=== PATIENT | male | born 1950 | race Caucasian/White ===

== ENCOUNTER 2017-10-26 10:44 | Outpatient (CLI) | payer MEDICARE, BC ==
[2017-10-26 19:01] LABS: BASOPHILS % (AUTO) 0.4 %; EOSINOPHILS # (AUTO) 0.2 10^3/uL (0.0-0.7); EOSINOPHILS % (AUTO) 4.3 %; HGB - HEMOGLOBIN 11.6 g/dL (14.0-18.0); LYMPHOCYTES # (AUTO) 0.6 10^3/uL (1.5-3.5); LYMPHOCYTES % (AUTO) 10.6 %; MEAN CORPUSCULAR HGB CONC 35.1 g/dL (32.0-36.0); MEAN CORPUSCULAR VOLUME 94.1 fL (80.0-94.0); MEAN PLATELET VOLUME 9.2 fL (7.4-11.4); MONOCYTES # (AUTO) 0.4 10^3/uL (0.0-1.0); MONOCYTES % (AUTO) 7.1 %; NEUTROPHILS # (AUTO) 4.4 10^3/uL (1.5-6.6); NEUTROPHILS % (AUTO) 77.6 %; PLT - PLATELET COUNT 164 10^3/uL (130-450); RED BLOOD COUNT 3.52 10^6/uL (4.70-6.10); WHITE BLOOD COUNT 5.6 x10^3/uL (4.8-10.8)
[2017-10-26 19:22] LABS: ALBUMIN/GLOBULIN RATIO 1.3 (1.0-2.2); ALKALINE PHOSPHATASE 45 IU/L (42-121); ALT ALANINE AMINOTRANSFERASE 25 IU/L (10-60); AST ASPARTATE AMINOTRANSFERASE 21 IU/L (10-42); BILIRUBIN,TOTAL 0.8 mg/dL (0.2-1.0); BUN - BLOOD UREA NITROGEN 34 mg/dL (6-20); CALCIUM 9.1 mg/dL (8.5-10.3); CARBON DIOXIDE - CO2 26 mmol/L (21-32); CHLORIDE 105 mmol/L (101-111); CHOL/HDL RATIO 4.2 (<5.0); CHOLESTEROL 177 mg/dL; CREATININE 1.3 mg/dL (0.6-1.2); GFR - MDRD 55 (>89); GLUCOSE 128 mg/dL (70-100); HDL CHOLESTEROL 42 mg/dL; LDL CHOLESTEROL,CALCULATED 115 mg/dL; LDL/HDL RATIO 2.7 (<3.6); SODIUM 136 mmol/L (135-145); VLDL CHOLESTEROL 20 mg/dL
== END 2017-10-26 10:45 | disposition home or self-care (01) ==
LOC: LAB.WCP 10:44
PROVIDERS: ATTEND Family Medicine
DX: E78.5 Hyperlipidemia, unspecified (principal); I10 Essential (primary) hypertension; Z12.5 Encounter for screening for malignant neoplasm of prostate
CPT/HCPCS: 36415; 80053; 80061; 84443; 85025; G0103; 83721; 84153

== ENCOUNTER 2017-12-11 08:48 | Day surgery (SDC) | payer MEDICARE, BC ==
[2017-12-11] MEDS ORDERED: LACTATED RINGERS 1,000 ML IV ONE (09:30)
[2017-12-11] MEDS ORDERED: fentaNYL 250 MCG/5 ML VIAL IVP ONE (10:15)
[2017-12-11] MEDS ORDERED: MIDAZOLAM 2 MG/2 ML VIAL IVP ONE (10:15)
[2017-12-11] MEDS ORDERED: ONDANSETRON 4 MG/2 ML VIAL IVP ONE (10:15)
[2017-12-11 11:27] VITALS: BP 142/79
== END 2017-12-11 08:49 | disposition home or self-care (01) ==
LOC: SDS 08:48
PROVIDERS: ATTEND Surgery
PROC: 0DBH8ZZ Excision of Cecum, Via Natural or Artificial Opening Endoscopic (ICD-10-PCS; 2017-12-11)
PROC: 0DBK8ZZ Excision of Ascending Colon, Via Natural or Artificial Opening Endoscopic (ICD-10-PCS; principal; 2017-12-11 10:00)
DX: Z12.11 Encounter for screening for malignant neoplasm of colon (principal); D12.2 Benign neoplasm of ascending colon; D12.0 Benign neoplasm of cecum; I10 Essential (primary) hypertension; D64.9 Anemia, unspecified; E66.9 Obesity, unspecified; Z68.34 Body mass index [BMI] 34.0-34.9, adult; Z80.0 Family history of malignant neoplasm of digestive organs; E11.9 Type 2 diabetes mellitus without complications
CPT/HCPCS: 45380; J3010; J7120; 88305

== ENCOUNTER 2018-12-13 08:00 | Outpatient (CLI) | payer MEDICARE, BC ==
[2018-12-13 18:40] LABS: BASOPHILS % (AUTO) 0.6 %; EOSINOPHILS # (AUTO) 0.2 10^3/uL (0.0-0.7); EOSINOPHILS % (AUTO) 3.7 %; HGB - HEMOGLOBIN 11.3 g/dL (14.0-18.0); LYMPHOCYTES # (AUTO) 0.8 10^3/uL (1.5-3.5); LYMPHOCYTES % (AUTO) 12.3 %; MEAN CORPUSCULAR HEMOGLOBIN 31.6 pg (27.0-31.0); MEAN CORPUSCULAR HGB CONC 33.7 g/dL (32.0-36.0); MEAN CORPUSCULAR VOLUME 93.8 fL (80.0-94.0); MONOCYTES # (AUTO) 0.5 10^3/uL (0.0-1.0); MONOCYTES % (AUTO) 7.9 %; NEUTROPHILS # (AUTO) 4.7 10^3/uL (1.5-6.6); NEUTROPHILS % (AUTO) 75.5 %; PLT - PLATELET COUNT 222 10^3/uL (130-450); RED BLOOD COUNT 3.57 10^6/uL (4.70-6.10); RED CELL DISTRIBUTION WIDTH 13.5 % (12.0-15.0); WHITE BLOOD COUNT 6.3 x10^3/uL (4.8-10.8)
[2018-12-13 19:01] LABS: ALBUMIN 3.6 g/dL (3.2-5.5); ALKALINE PHOSPHATASE 61 IU/L (42-121); ALT ALANINE AMINOTRANSFERASE 15 IU/L (10-60); AST ASPARTATE AMINOTRANSFERASE 15 IU/L (10-42); BILIRUBIN,TOTAL 0.8 mg/dL (0.2-1.0); BUN - BLOOD UREA NITROGEN 29 mg/dL (6-20); CALCIUM 9.1 mg/dL (8.5-10.3); CARBON DIOXIDE - CO2 24 mmol/L (21-32); CHLORIDE 105 mmol/L (101-111); CHOL/HDL RATIO 3.5 (<5.0); CHOLESTEROL 154 mg/dL; CREATININE 1.4 mg/dL (0.6-1.2); GFR - MDRD 50 (>89); GLUCOSE 133 mg/dL (70-100); HDL CHOLESTEROL 44 mg/dL; LDL CHOLESTEROL,CALCULATED 83 mg/dL; LDL/HDL RATIO 1.9 (<3.6); SODIUM 137 mmol/L (135-145); TOTAL PROTEIN 7.1 g/dL (6.7-8.2); VLDL CHOLESTEROL 27 mg/dL
== END 2018-12-13 23:59 | disposition home or self-care (01) ==
LOC: LAB.WCP 08:00
PROVIDERS: ATTEND Family Medicine
DX: I10 Essential (primary) hypertension (principal); E78.5 Hyperlipidemia, unspecified; E66.9 Obesity, unspecified; D64.9 Anemia, unspecified
CPT/HCPCS: 36415; 80053; 80061; 83721; 84443; 85025

== ENCOUNTER 2018-12-20 08:00 | Outpatient (CLI) | payer MEDICARE, BC ==
[2018-12-20 18:45] LABS: MEAN CORPUSCULAR HEMOGLOBIN 30.9 pg (27.0-31.0); MEAN CORPUSCULAR HGB CONC 33.4 g/dL (32.0-36.0); MEAN CORPUSCULAR VOLUME 92.5 fL (80.0-94.0); MEAN PLATELET VOLUME 8.9 fL (7.4-11.4); RED BLOOD COUNT 3.57 10^6/uL (4.70-6.10); RED CELL DISTRIBUTION WIDTH 13.6 % (12.0-15.0); WHITE BLOOD COUNT 7.5 x10^3/uL (4.8-10.8)
[2018-12-20 19:02] LABS: CALCIUM 8.9 mg/dL (8.5-10.3); CREATININE 2.3 mg/dL (0.6-1.2); URIC ACID 11.3 mg/dL (2.6-7.2)
== END 2018-12-20 23:59 | disposition home or self-care (01) ==
LOC: LAB.WCP 08:00
PROVIDERS: ATTEND Family Medicine
DX: M79.641 Pain in right hand (principal)
CPT/HCPCS: 36415; 80048; 84550; 85027; 85651

== ENCOUNTER 2018-12-20 13:27 | Outpatient (CLI) | payer MEDICARE, BC ==
--- NOTE | 2018-12-20 13:55 | XRAY Report ---
Reason: HAND PAIN,RIGHT Procedure Date: 12/20/2018 Accession Number: [id number] / [id number] Procedure: WCP - Hand 3 View RT CPT Code: FULL RESULT: EXAM: RIGHT HAND RADIOGRAPHY EXAM DATE: 12/20/2018 01:38 PM. CLINICAL HISTORY: HAND PAIN AND SWELLING, RIGHT. COMPARISON: None. TECHNIQUE: 3 views. FINDINGS: Bones: The middle and distal phalanges of digits 2 through 5 are not optimally evaluated because the patient cannot extend his fingers. No obvious osseous abnormality in the hand or wrist. Joints: Mild chondrocalcinosis in multiple wrist joints. Soft Tissues: Marked dorsal hand soft tissue swelling. Differential diagnosis includes trauma or cellulitis. IMPRESSION: 1. No evidence of fracture. 2. Marked dorsal hand soft tissue swelling as described above. RADIA
== END 2018-12-20 13:28 | disposition home or self-care (01) ==
LOC: DI.WCP 13:27
PROVIDERS: ATTEND Family Medicine
DX: M79.641 Pain in right hand (principal); R22.31 Localized swelling, mass and lump, right upper limb

== ENCOUNTER 2018-12-26 12:43 | Outpatient (CLI) | payer MEDICARE, BC ==
[2018-12-26 18:53] LABS: BASOPHILS % (AUTO) 0.3 %; EOSINOPHILS % (AUTO) 0.1 %; HGB - HEMOGLOBIN 11.2 g/dL (14.0-18.0); LYMPHOCYTES # (AUTO) 0.3 10^3/uL (1.5-3.5); LYMPHOCYTES % (AUTO) 3.4 %; MEAN CORPUSCULAR HEMOGLOBIN 31.8 pg (27.0-31.0); MEAN PLATELET VOLUME 8.2 fL (7.4-11.4); MONOCYTES # (AUTO) 0.3 10^3/uL (0.0-1.0); MONOCYTES % (AUTO) 3.3 %; NEUTROPHILS # (AUTO) 9.2 10^3/uL (1.5-6.6); NEUTROPHILS % (AUTO) 92.9 %; PLT - PLATELET COUNT 320 10^3/uL (130-450); RED BLOOD COUNT 3.53 10^6/uL (4.70-6.10); RED CELL DISTRIBUTION WIDTH 13.3 % (12.0-15.0)
[2018-12-26 19:11] LABS: CREATININE 2.2 mg/dL (0.6-1.2)
[2018-12-26 19:28] LABS: CALCIUM 8.9 mg/dL (8.5-10.3)
== END 2018-12-26 12:44 | disposition home or self-care (01) ==
LOC: LAB.WCP 12:43
PROVIDERS: ATTEND Family Medicine
DX: M10.9 Gout, unspecified (principal); M79.641 Pain in right hand; N18.3 Chronic kidney disease, stage 3 (moderate); I12.9 Hypertensive chronic kidney disease with stage 1 through stage 4 chronic kidney disease, or unspecified chronic kidney disease
CPT/HCPCS: 36415; 80048; 85025

== ENCOUNTER 2019-01-02 19:52 | Observation (INO) | payer MEDICARE, BC ==
[2019-01-02] MEDS ORDERED: SODIUM CHLORIDE 0.9% 1,000 ML IV ONE (20:21)
--- NOTE | 2019-01-02 20:24 | ED Physician Documentation ---
PD HPI NVD - Stated complaint Stated Complaint: NAUSEA/DIARRHEA - Chief complaint Chief Complaint: General - History obtained from History obtained from: Patient - History of Present Illness Timing - onset: How many days ago (3) Timing - duration: Days Timing - details: Gradual onset, Waxing and waning Pain level max: 0 Pain level now: 0 Associated symptoms: Dizzy. No: Fever, Abdominal pain, Chest pain, Hematemesis, Melena, Hematochezia Improved by: Laying still Worsened by: Other (dizzy when standing) Similar symptoms before: Has not had sx before Recently seen: Not recently seen - Additonal information Additional information: c/o 3 days of nausea but no significant vomiting, diarrhea (chief complaint is diarrhea). denies any pain. He has mild lightheadedness and becomes dizzy when standing and ambulating. Review of Systems Constitutional: denies: Fever, Chills, Sweats Eyes: reports: Reviewed and negative Cardiac: reports: Reviewed and negative Respiratory: reports: Reviewed and negative GI: reports: Nausea, Diarrhea. denies: Abdominal Pain, Vomiting : denies: Dysuria, Frequency Skin: denies: Rash Musculoskeletal: reports: Reviewed and negative Neurologic: reports: Generalized weakness. denies: Focal weakness, Numbness, Headache PD PAST MEDICAL HISTORY - Past Medical History Cardiovascular: Hypertension, High cholesterol Respiratory: None Endocrine/Autoimmune: Type 2 diabetes GI: None : None HEENT: None Psych: None Musculoskeletal: None Derm: None - Past Surgical History Past Surgical History: No General: Colonoscopy HEENT: Other - Present Medications Home Medications: Ambulatory Orders Medication Instructions Recorded Confirmed Aspirin [Aspir-Low] 81 mg ORAL DAILY 10/19/15 01/02/19 Carvedilol 25 mg ORAL BID 10/19/15 01/02/19 Lisinopril 20 mg ORAL BID 10/19/15 01/02/19 Simvastatin 10 mg ORAL DAILY 10/19/15 01/02/19 Allopurinol 100 mg PO DAILY 01/02/19 01/02/19 Colchicine 0.6 mg PO DAILY 01/02/19 01/02/19 - Allergies Allergies/Adverse Reactions: Allergies Allergy/AdvReac Type Severity Reaction Status Date / Time No Known Drug Allergies Allergy Verified 01/02/19 20:12 - Social History Does the pt smoke?: No Smoking Status: Never smoker Does the pt drink ETOH?: Yes Does the pt have substance abuse?: No - Immunizations Immunizations are current?: Yes PD ED PE NORMAL - Vitals Vital signs reviewed: Yes - General General: Alert and oriented X 3, No acute distress, Well developed/nourished - HEENT HEENT: PERRL, EOMI, Moist mucous membranes, Pharynx benign - Neck Neck: Supple, no meningeal sign - Cardiac Cardiac: RRR, No murmur - Respiratory Respiratory: No respiratory distress, Clear bilaterally - Abdomen Abdomen: Normal bowel sounds, Soft, Non tender, Non distended, No organomegaly - Back Back: No CVA TTP - Derm Derm: Normal color, Warm and dry - Extremities Extremities: No edema - Neuro Neuro: Alert and oriented X 3, weight recorder 2-12 intact, No motor deficit, No sensory deficit, Normal speech PD ED PE EXPANDED - Cardiac Cardiac: Other (occasional extrabeats with compensatory pauses) - Rectal Rectal: Heme Occult Pos - QC +, Selling Manager present (JESUS Quinteros) Results - Vitals Vitals: Vital Signs - 24 hr 01/02/19 01/02/19 01/02/19 20:07 20:22 20:39 Temperature 36.7 C Heart Rate 93 104 H 95 Respiratory 18 21 19 Rate Blood Pressure 71/56 L 118/99 H 84/58 L O2 Saturation 100 100 97 01/02/19 01/02/19 21:08 21:30 Temperature Heart Rate 98 101 H Respiratory 18 23 Rate Blood Pressure 118/65 100/66 O2 Saturation 97 100 Oxygen O2 Source Room air - EKG (time done) No standard instances Rate: Rate (enter#) (95) Rhythm: NSR Slinger: Normal Intervals: Normal SC QRS: Normal Ischemia: Normal ST segments, Non specific changes (T flat/inverted V4-V6, I, aVL, and inferior leads) - Labs Labs: Laboratory Tests 01/02/19 01/02/19 01/02/19 20:29 20:29 20:30 WBC 12.7 H RBC 3.86 L Hgb 12.0 L Hct 35.0 L MCV 90.7 MCH 31.0 MCHC 34.2 RDW 13.3 Plt Count 193 MPV 8.0 Neut # (Auto) 11.8 H Lymph # (Auto) 0.2 L Potter # (Auto) 0.2 Eos # (Auto) 0.3 Baso # (Auto) 0.1 Absolute Nucleated RBC 0.00 Nucleated RBC % 0.0 Sodium 132 L Potassium 5.3 H Chloride 106 Carbon Dioxide 14 L Anion Gap 12.0 BUN 75 H Creatinine 3.2 H Estimated GFR (MDRD) 19 L Glucose 141 H Lactic Acid Calcium 8.6 Total Bilirubin 0.7 AST 20 ALT 26 Alkaline Phosphatase 51 Troponin I < 0.04 Total Protein 6.5 L Albumin 3.2 Globulin 3.3 Albumin/Globulin Ratio 1.0 Lipase 28 TSH 01/02/19 01/02/19 20:30 20:30 WBC RBC Hgb Hct MCV MCH MCHC RDW Plt Count MPV Neut # (Auto) Lymph # (Auto) Potter # (Auto) Eos # (Auto) Baso # (Auto) Absolute Nucleated RBC Nucleated RBC % Sodium Potassium Chloride Carbon Dioxide Anion Gap BUN Creatinine Estimated GFR (MDRD) Glucose Lactic Acid 1.6 Calcium Total Bilirubin AST ALT Alkaline Phosphatase Troponin I Total Protein Albumin Globulin Albumin/Globulin Ratio Lipase TSH 0.94 - Rads (name of study) chest xray Radiology: Prelim report reviewed, See rad report PD MEDICAL DECISION MAKING - ED course Complexity details: reviewed results, re-evaluated patient, considered differential, d/w patient Departure - Departure Disposition: ED Place in Observation Clinical Impression: Dehydration Hypotension Qualifiers: Hypotension type: unspecified hypotension type Qualified Code(s): I95.9 - Hypotension, unspecified Condition: Stable Discharge Date/Time: 01/02/19 22:50
[2019-01-02 20:34] LABS: BASOPHILS # (AUTO) 0.1 10^3/uL (0.0-0.1); BASOPHILS % (AUTO) 0.5 %; EOSINOPHILS # (AUTO) 0.3 10^3/uL (0.0-0.7); EOSINOPHILS % (AUTO) 2.6 %; LYMPHOCYTES # (AUTO) 0.2 10^3/uL (1.5-3.5); LYMPHOCYTES % (AUTO) 1.8 %; MEAN CORPUSCULAR HGB CONC 34.2 g/dL (32.0-36.0); MEAN CORPUSCULAR VOLUME 90.7 fL (80.0-94.0); MONOCYTES # (AUTO) 0.2 10^3/uL (0.0-1.0); NEUTROPHILS # (AUTO) 11.8 10^3/uL (1.5-6.6); NEUTROPHILS % (AUTO) 93.1 %; PLT - PLATELET COUNT 193 10^3/uL (130-450); RED BLOOD COUNT 3.86 10^6/uL (4.70-6.10); RED CELL DISTRIBUTION WIDTH 13.3 % (12.0-15.0); WHITE BLOOD COUNT 12.7 x10^3/uL (4.8-10.8)
[2019-01-02 20:46] LABS: ALBUMIN 3.2 g/dL (3.2-5.5); BILIRUBIN,TOTAL 0.7 mg/dL (0.2-1.0); CALCIUM 8.6 mg/dL (8.5-10.3); CREATININE 3.2 mg/dL (0.6-1.2); TOTAL PROTEIN 6.5 g/dL (6.7-8.2)
--- NOTE | 2019-01-02 21:15 | XRAY Report ---
Reason: hypotension Procedure Date: 01/02/2019 Accession Number: [id number] / [id number] Procedure: XR - Chest 2 View X-Ray CPT Code: 58352 FULL RESULT: EXAM: CHEST RADIOGRAPHY EXAM DATE: 01/02/2019 09:05 PM. CLINICAL HISTORY: Nausea and generalized weakness for 4 days COMPARISON: None. TECHNIQUE: 2 views. FINDINGS: Lungs/Pleura: No focal opacities evident. No pleural effusion. No pneumothorax. Normal volumes. Mediastinum: The heart size is normal. There is mild aortic arch atherosclerotic calcification. Other: There are old fractures of the posterior left sixth, seventh, and eighth ribs. There is anterior disk osteophyte spurring of the thoracic spine. IMPRESSION: Negative for any acute cardiopulmonary abnormality. RADIA
[2019-01-02] MEDS ORDERED: SODIUM CHLORIDE 0.9% 1,000 ML IV STA (21:25)
[2019-01-02] MEDS ORDERED: ONDANSETRON ODT 4 MG TABLET TL PRN (21:33)
[2019-01-02] MEDS ORDERED: ACETAMINOPHEN 325 MG TABLET PO PRN (21:33)
[2019-01-02] MEDS ORDERED: ONDANSETRON 4 MG/2 ML VIAL IVP PRN (21:33)
[2019-01-02] MEDS ORDERED: oxyCODONE 5 MG TABLET PO PRN (21:33)
[2019-01-02 21:55] LABS: BILIRUBIN,URINE NEGATIVE (NEGATIVE); GLUCOSE, URINE (UA) NEGATIVE (NEGATIVE); KETONES,URINE (UA) NEGATIVE (NEGATIVE); LEUKOCYTE ESTERASE, URINE NEGATIVE (NEGATIVE); NITRITE,URINE NEGATIVE (NEGATIVE); OCCULT BLOOD,URINE NEGATIVE (NEGATIVE); PH,URINE 5.5 PH (5.0-7.5); PROTEIN,URINE NEGATIVE (NEGATIVE); UROBILINOGEN,URINE 0.2 (NORMAL) E.U./dL (NORMAL)
[2019-01-02 22:01] LABS: CLARITY,URINE CLEAR (CLEAR)
[2019-01-02] MEDS: PANTOPRAZOLE 40 MG VIAL IVP SCH (23:15)
[2019-01-02] MEDS: SODIUM CHLORIDE 0.9% 1,000 ML IV SCH (23:15)
[2019-01-02] MEDS: SODIUM CHLORIDE FLUSH 0.9% 10 ML SYRINGE IVP PRN (23:15)
[2019-01-02] MEDS: SODIUM CHLORIDE FLUSH 0.9% 10 ML SYRINGE IVP SCH (23:16)
--- NOTE | 2019-01-03 03:40 | HISTORY & PHYSICAL EXAMINATION ---
DATE OF SERVICE: 01/02/2019 Physician: Smiley Uribe MD PRIMARY CARE PROVIDER: Roberto Baez MD ADMITTING PROVIDER: Smiley Uribe MD CHIEF COMPLAINT: Diarrhea for 2 days with nausea and vomiting. HISTORY OF PRESENT ILLNESS: He is a 68-year-old male with cognitive delay deficits as read in his PCP notes. He lives in his own home and still drives, pays his own bills, but [place] His father used to live with him, but his father 2 years ago of colon cancer. The patient is seen intermittently in Dr. Baez's office. He had not been seen in about a year and he presented to the office on December 13, with a complaint of right hand swelling and pain since about December 13. The entire right hand was diffusely swollen, with painful fourth and third joints. The sister describes it as a baseball glove. He was seen by Dr. Baez on December 20. Dr. Baez examined him and felt that it was either infection or gout. Plain film was done and there was no destructive joint process going on. Labs were done. Of note, December 13 creatinine was 1[address] With Dr. Baez's visit, the creatinine had already risen to 2.3. He was started on cephalexin and Colcrys for possible gout. He was then referred to Dr. Colón, who saw him. That was on December 24. The hand was still swollen, painful to completely flex the fingers, wrist was slightly tender, and again pain at the third and fourth joints of the right hand. Instead of indomethacin, because of the creatinine, Medrol Dosepak was used. Keflex was changed to Bactrim. This patient is already on Colcrys and lisinopril and hydrochlorothiazide. He was then seen in followup by Dr. Baez on December 27, and allopurinol was added to start this week. He took allopurinol for a few days only. Diarrhea started 2 days ago. It is liquid, foul smelling. No blood. He has no appetite. He then started having nausea and vomiting. He said that the diarrhea did not start with the Colcrys on December 20, but only started this last 2 days, approximately December 31 and January 01. He denies fever, chills. He has had 2 colonoscopies. One was in 2007. Because of his dad's history of colon cancer, he had another one in December 2017, where 2 polyps were negative in their pathology. He has baseline chronic kidney disease stage 3. He was seen in the emergency room and evaluated by Dr. Reese. Presenting blood pressure was 71/56. He received 2 liters of fluid in the ER and blood pressure went up to 118/99. Upon transfer from the ER to med/surg, his blood pressure was 100/66. Pulse was initially 93 and peaked at 104. He is currently 101. He is a pleasant, morbidly obese male. The right hand is tremendously improved from the descriptions of Dr. Colón and Dr. Baez's notes. The patient is very satisfied with how much more hand movement he has and the swelling is almost completely gone. However, his sodium is 132, potassium 5.3, BUN 75 and creatinine 3.2. Random glucose 141. Troponin is less than 0.04 and lactic acid is 1.6. The patient is now brought in for dehydration, with acute rise in BUN and creatinine. PAST MEDICAL HISTORY 1. Type 2 diabetes mellitus, diet controlled. No complications. 2. Hypertension. 3. Morbid obesity. 4. Chronic proteinuria. 5. Chronic nonalcoholic liver disease. 6. Chronic anemia with a hemoglobin of 11.6. 7. History of colon polyps with negative pathology. Last colonoscopy December 2017. He will be due in December 2022. ALLERGIES: NO KNOWN DRUG ALLERGIES. MEDICATIONS 1. Aspirin 81 mg daily. 2. Carvedilol 25 mg p.o. b.i.d. 3. Hydrochlorothiazide 50 mg daily. 4. Lisinopril 20 mg daily. 5. Simvastatin 10 mg daily. 6. Medrol Dosepak was completed 2 days ago. 7. Colcrys 0.6 mg p.o. b.i.d. was decreased to 0.6 mg daily on December 27. He says he has not had any for 2 days. 8. Allopurinol 100 mg daily was given this week. SOCIAL HISTORY: Born and raised on the [place]. Never . He has no children. Lives in his own home. Again, was living with his father when his father 2 years ago. Sister who is with him states that he is safe to be independent. He has never smoked. He drinks 1-2 beers about every 2 weeks. No history of recreational substance abuse. FAMILY HISTORY 1. Mom had depression, arthritis, anxiety, alcohol abuse, in her 70s. Dad in his 80s in 2017 with chronic kidney disease, colon cancer, osteoarthritis, anemia, and skin cancer in his history. The family is understandably very concerned that this gentleman has a rise in his creatinine because they feel that dad of kidney failure. 2. Several siblings. Only positive for breast cancer in one of his sisters. 3. No children. PREVIOUS LEVEL OF FUNCTION: The patient lives independently in his own apartment. He pays his own bills. He drives a car. Usually, he is quite independent, but with his hand hurting he has not driven his car for over a month. His sister has been taking him from place to place. REVIEW OF SYSTEMS CONSTITUTIONAL: Denies fevers, chills, sweats, unexpected weight changes. ENT: He has developing problems with reading and may need reading glasses, but denies glaucoma or cataracts. No problems with swallowing, dentition. No facial dysesthesias. No problems with hearing. PULMONARY: Denies coughing, wheezing, congestion, shortness of breath, chest congestion, or URI symptoms. CARDIAC: Denies valvular heart disease, arrhythmia, orthopnea, leg edema. He has no chest pain. No change in his overall physical activity or endurance. His mobility is limited right now because of hand pain that has gradually gotten much better. GASTROINTESTINAL: As above. GENITOURINARY: Occasional nocturia, slight decreased stream. No hematuria, no flank pain, no dysuria or urgency, no incontinence. JOINTS: The right hand has been painful over the last month. He has some stiffness in his hands in a baseline perspective. Occasionally, low back stiffness, but no effusions, no migratory polyarthralgia. The right hand is the only thing that bothered him. Many years ago, it was his foot that bothered him with gout. SKIN: Sister is concerned, but she states she feels that his right forearm is whiter than his left forearm, but the patient feels the coloration is the same. No new rashes or lesions, other than the redness and swelling around his hand and wrist this month. PSYCHIATRIC: Denies depression, anxiety, hallucinations. ENDOCRINE: Denies polyphagia or polydipsia. No heat or cold intolerance. CENTRAL NERVOUS SYSTEM: Mild developmental delay. No seizure problems, memory problems that are new. No focal deficits. No tremors. No ataxia or falls. PHYSICAL EXAMINATION GENERAL: He is a pleasant, white male accompanied by his sister at the bedside in the emergency room. Mildly overweight. VITAL SIGNS: Temperature is 36.7, pulse is 101, blood pressure 100/66, respirations 23 and 100% on room air. ENT: He has male pattern baldness. Pupils are reactive. Sclerae are nonicteric. Normal facial symmetry. Oral mucosa is quite dry. Lips are not cracked. Normal speech pattern. NECK: No goiter, bruits or JVD. LUNGS: Clear to auscultation and percussion without crackles, rhonchi or wheezing. He is breathing without any increased difficulty when I ask him to get up and move for me or to speak. He is quite comfortable from a respiratory perspective. HEART: PMI is normally placed with a regular rate and rhythm. No murmurs, rubs or gallops. ABDOMEN: Slightly protuberant with his weight, but nontender. Normal bowel sounds. No rebound or guarding. No masses palpable. EXTREMITIES: Warm without clubbing, cyanosis or edema. There is a subtle edema residual in the right hand in comparison to the left hand. The flexor tendons and extensor tendons of his fingers and hand on the left hand are quite visible. On the right hand, there are some soft tissue changes that obscure that, but there is no redness, heat. Full flexion at the second, third, and fourth fingers is not complete in comparison to the left hand, but able to do so. He says that his hand is overall much improved from the "baseball glove" that it was at the beginning of December. My exam concurs with this and, really, without knowing his history, you would think the right hand was normal. As per the sister's concern about the forearm discoloration, forearm color is the same color as the left forearm. He has good dorsalis pedis and posterior tibial pulses. NEUROLOGIC: He is alert and oriented to person, place and time. Follows 2-step commands. Cheerful affect. Grossly normal cranial nerves II-XII. No tremors. LABORATORY DATA: CMP reviewed in history. CBC reviewed in history. Urinalysis is negative for protein, glucose, ketones, nitrites, bilirubin and urobilinogen. Leukocyte esterase negative. No cells seen at all. ASSESSMENT/PLAN 1. Acute dehydration secondary to medication use. I had his sister take home his allopurinol, Colcrys. I am going to hold off on his lisinopril and hydrochlorothiazide. I expect that the dehydration is drug-induced. We will evaluate problem #2. Plan: a. Observation status for hydration. b. Attestation that the patient will be discharged within 96 hours. c. Hydration with 0.9 normal saline. 2. Acute on chronic kidney disease stage 3. Check renal ultrasound. This patient had a creatinine of 1.4 on December 13, 2.3 on December 20, 2.2 on December 26, and today 3.2 with hyperkalemia. Initially, I suspected possible interstitial nephritis from his medication use, but his urinalysis has no cellular constituent whatsoever. He may have just severe dehydration and intra-volume depletion that may have started even before his use of medication as seen on the Creatinine that was done before he saw Dr. Baez. Plan: IV fluids for hydration and repeat BMP in the morning. 3. Nausea and vomiting. While I do think that the diarrhea could be induced from the allopurinol and Colcrys, the nausea and vomiting are most likely induced from the BUN and creatinine. Hopefully, with a reduction in his BUN and creatinine, that will resolve. Give clear liquids. Compazine p.r.n., Zofran p.r.n. 4. Diarrhea. Again, most likely induced by the Colcrys. He has not had Colcrys for 2 days, but he is on antibiotics. We will check stool culture, C. difficile for completeness sake. 5. Hypertension. Currently not a problem. In fact, he is hypotensive, most likely from hypovolemia. I have had a sister take home his hydrochlorothiazide and lisinopril. He does not need to take it here. We will continue to monitor blood pressure and give medicines as needed. 6. Deep venous thrombosis prophylaxis will be CHAPO diallo. 7. FULL CODE status. TD: 01/02/2019 22:35 ESPERANZA
[2019-01-03] MEDS: PANTOPRAZOLE 40 MG VIAL IVP SCH (06:28)
[2019-01-03] MEDS: SODIUM CHLORIDE FLUSH 0.9% 10 ML SYRINGE IVP PRN (06:29)
[2019-01-03 07:28] LABS: BASOPHILS % (AUTO) 0.1 %; EOSINOPHILS # (AUTO) 0.3 10^3/uL (0.0-0.7); EOSINOPHILS % (AUTO) 4.3 %; HGB - HEMOGLOBIN 10.3 g/dL (14.0-18.0); LYMPHOCYTES # (AUTO) 0.3 10^3/uL (1.5-3.5); LYMPHOCYTES % (AUTO) 4.4 %; MEAN CORPUSCULAR HEMOGLOBIN 31.4 pg (27.0-31.0); MEAN CORPUSCULAR HGB CONC 34.5 g/dL (32.0-36.0); MEAN PLATELET VOLUME 8.3 fL (7.4-11.4); MONOCYTES # (AUTO) 0.2 10^3/uL (0.0-1.0); MONOCYTES % (AUTO) 2.4 %; NEUTROPHILS # (AUTO) 6.9 10^3/uL (1.5-6.6); NEUTROPHILS % (AUTO) 88.8 %; PLT - PLATELET COUNT 140 10^3/uL (130-450); RED BLOOD COUNT 3.29 10^6/uL (4.70-6.10); RED CELL DISTRIBUTION WIDTH 13.5 % (12.0-15.0); WHITE BLOOD COUNT 7.7 x10^3/uL (4.8-10.8)
[2019-01-03 07:35] LABS: CALCIUM 7.7 mg/dL (8.5-10.3); CREATININE 2.6 mg/dL (0.6-1.2)
[2019-01-03] MEDS: SODIUM CHLORIDE 0.9% 1,000 ML IV SCH (08:54)
[2019-01-03] MEDS: SODIUM BICARBONATE 650 MG TABLET PO SCH ×2 (08:54→15:42)
[2019-01-03] MEDS: SODIUM CHLORIDE FLUSH 0.9% 10 ML SYRINGE IVP SCH (08:55)
[2019-01-03] MEDS ORDERED: POLYETHYLENE GLYCOL 3350 17 GM PACKET PO SCH (09:00)
[2019-01-03 09:28] LABS: CREATININE,URINE 63.6 mg/dL; PROTEIN/CREATININE RATIO,URINE 0.4 (<=0.2)
--- NOTE | 2019-01-03 10:42 | Discharge Plan ---
Discharge Plan Disposition: 01 Home, Self Care Condition: Good Prescriptions: Lactobacillus Rhamnosus GG [Culturelle] 0 cap PO DAILY #15 capsule Sodium Bicarbonate 650 mg PO TID 10 Days #30 tablet Diet: Regular Activity Restrictions: No Restrictions Shower Restrictions: No Driving Restrictions: No Instruction Topics: Kidney Disease Chronic Dc, ED Insufficiency Renal, ED Diet Renal Additional Instructions or Follow Up instructions: You were admitted for an acute kidney injury which may have been associated with the use of Bactrim as well as other nephrotoxic agents. He will be instructed to hold off on your dose of lisinopril as well as Coreg as these may potentiate further kidney damage on your existing chronic kidney disease stage III. You were also noted to have electrolyte disturbances which are going to be corrected with the prescription that will be given to you sodium bicarbonate 650 mg to be taken 3 times daily for a total of 10 days. We will be instructed to provide necessary fluid intake so your blood pressures can go back to baseline. You will follow-up with your primary care provider in about 1 week's time to repeat a blood draw to check for your creatinine for which this would be a function of your kidney damage. You are instructed to take all medications as prescribed and keep all appointments. No Smoking: If you smoke, Please STOP! Call for help. Follow-up with: Roberto Baez MD [Primary Care Provider] - 1 Week (We will repeat a renal panel in 1 week's time)
--- NOTE | 2019-01-03 10:48 | DISCHARGE SUMMARY ---
"Discharge Summary Admit Date: 01/02/19 Discharge Date: 01/03/19 Discharging Provider: Dr. Wayne Primary Care Provider: Roberto Baez Code Status: Attempt Resuscitation Condition at Discharge: Good Discharge Disposition: 01 Home, Self Care - DIAGNOSES Admission Diagnoses: 1. Acute dehydration secondary to medication use 2. Acute on chronic kidney disease stage III 3. Nausea with associated vomiting 4. Diarrhea 5. Hypertension Discharge Diagnoses with Status of Each Condition: 1. Acute dehydration secondary to medication use, Stable and improved 2. Possible interstitial nephritis secondary to Bactrim use with Acute on chronic kidney disease stage III, Stable and improved 3. Nausea with associated vomiting, Resolved 4. Non-infectious Diarrhea, Stable and improved 5. Hypertension, Stable 6. History of gout, stable - HPI History of Present Illness: This is a 68-year-old male with cognitive delay deficits per PCP notes who presents to his PCPs office and was seen for edematous hand with painful fourth and third joints to his entire right hand. He was seen by Dr. Baez on December 20 for which he felt that he had an infection or gout. Patient was given steroi ds as well as started on Keflex and Colcrys for possible gout. He was then referred to orthopedic service and still showed some limitations to flexion of fingers. Patient was continued on a Medrol Dosepak along with the changing of Keflex to Bactrim. Patient in addition was on lisinopril and hydr ochlorothiazide as well as Coreg. Patient had diarrhea subsequently after taking Bactrim as well as allopurinol. Patient was tested for C. difficile here and was negative. Patient's creatinine had essentially gone up from baseline of 1.4-1.8 to a 3.2. Patient has underlying chronic kidney disease stage III. Troponin was less than 0.04 with a lactic acid of 1.6. Patient was brought in for dehydration with acute rise in BUN and creatinine deemed to be possibly interstitial nephritis as a result of administration of Bactrim. - CONSULTS | PROCEDURES Procedures: Retroperitoneal ultrasound Was unremarkable on 01/03/2019 - HOSPITAL COURSE Hospital Course: Patient was admitted for acute dehydration with prerenal azotemia with electrolyte disturbance and metabolic acidosis as it pertained to his possible interstitial nephritis as it is associated with Bactrim double strength. Patient was medically managed with a creatinine trending from 3.2-2.6 upon discharge. Patient responded well to medical management IV fluids with initial reactive leukocytosis of 12.7 to a normal WBC upon discharge. Patient had blood pressure of 108/66 with variable tachycardia and no arrhythmias seen throughout hospitalization. Prior serum uric acid dated 12/20 was 11.3, patient had previously been on allopurinol. Patient's diarrhea improved significantly and patient will be prescribed lactobacillus as an outpatient and stopping all offending agents that may have precipitated an interstitial nephritis. However I suspect Bactrim double strength medication to be the culprit. Patient will be given the prescriptions for sodium bicarbonate to replenish sodium and stabilize metabolic acidosis. Urinalysis did not show white cast or renal cell casts or any sediments or crystals. No infections were seen. Patient's right hand was not erythematous or edematous. Patient on chest x-ray had old fractures to the posterior left sixth seventh and eighth ribs. C. difficile was negative. Retroperitoneal ultrasound Was unremarkable on 01/03/2019. Patient will be given instructions on repeating renal panel in about 1 week's time at PCPs office Dr. Roberto Baez. - ALLERGIES Allergies/Adverse Reactions: Allergies Allergy/AdvReac Type Severity Reaction Status Date / Time No Known Drug Allergies Allergy Verified 01/02/19 20:12 - MEDICATIONS Home Medications: Ambulatory Orders Medication Instructions Recorded Confirmed Aspirin [Aspir-Low] 81 mg ORAL DAILY 10/19/15 01/02/19 Simvastatin 10 mg ORAL DAILY 10/19/15 01/02/19 Allopurinol 100 mg PO DAILY 01/02/19 01/02/19 HYDROcod/ACETAM 5/325 [[place] 5/325] 1 each PO QID PRN 01/03/19 01/03/19 Lactobacillus Rhamnosus GG 0 cap PO DAILY #15 capsule 01/03/19 [Culturelle] Sodium Bicarbonate 650 mg PO TID 10 Days #30 tablet 01/03/19 - PHYSICAL EXAM AT DISCHARGE General Appearance: positive: No acute distress, Alert, Mild distress, Other (Developmental delay) Eyes Bilateral: positive: Normal inspection, PERRL, EOMI ENT: positive: ENT inspection nml, Pharynx nml, No signs of dehydration Neck: positive: Nml inspection, Thyroid nml, No JVD, Trachea midline Cardiovascular: positive: Regular rate & rhythm, No murmur, No gallop Peripheral Pulses: positive: 2+ Abdomen: positive: Non-tender, No organomegaly, Nml bowel sounds, No distention. negative: Tenderness Skin: positive: Color nml, No rash Extremities: positive: Non-tender, Full ROM, Nml appearance Neurologic/Psychiatric: positive: Oriented x3, CN's nml (2-12) - LABS Result Diagrams: 01/03/19 07:18 01/03/19 07:18 - DIAGNOSTIC IMAGING Diagnostic Imaging Results: Final report reviewed - SEPSIS Current Stage of Sepsis: Ruled out - FOLLOW UP Follow Up: Follow-up with PCP Dr. Roberto Baez within 1 or 2 weeks and repeat renal panel - TIME SPENT Time Spent in Discharge (Minutes): 35"
[2019-01-03] MEDS ORDERED: HYDROcod/ACETAM 5/325 MG TABLET PO PRN (15:29)
[2019-01-03 15:30] VITALS: BP 120/66
--- NOTE | 2019-01-03 15:41 | Ultrasound Report ---
Reason: eval for hydronephrosis/stones Procedure Date: 01/03/2019 Accession Number: [id number] / [id number] Procedure: US - Retroperitoneal CPT Code: FULL RESULT: EXAM: RENAL ULTRASOUND EXAM DATE: 01/03/2019 02:32 PM. CLINICAL HISTORY: Renal insufficiency COMPARISON: ABDOMEN/PELVIS W/ 10/19/2015 5:58 PM. TECHNIQUE: Real-time scanning was performed with static images obtained. FINDINGS: Right Kidney: 9.5 x 5.3 x 4.8 cm. Mildly increased cortical echogenicity with no stones, contour-deforming masses, or hydronephrosis. Left Kidney: 9.3 x 7.0 x 5.8 cm. Mildly increased cortical echogenicity with no stones, contour-deforming masses, or hydronephrosis. There is an exophytic renal cyst. Bladder: Bilateral jets seen. The prevoid bladder volume was 335 cc. The postvoid bladder volume was 54 cc. Other: None. IMPRESSION: 1. The kidneys demonstrate no shadowing stones or hydronephrosis. 2. There is a small post void residual bladder volume. RADIA
== END 2019-01-03 16:21 | disposition home or self-care (01) ==
LOC: ED 19:52 → MS2 21:33
PROVIDERS: ADMIT Specialist; ATTEND Family Medicine
DX: E86.0 Dehydration (principal); N17.9 Acute kidney failure, unspecified; I95.9 Hypotension, unspecified; E86.1 Hypovolemia; E87.2 Acidosis; E87.5 Hyperkalemia; R11.2 Nausea with vomiting, unspecified; K52.9 Noninfective gastroenteritis and colitis, unspecified; T50.905A Adverse effect of unspecified drugs, medicaments and biological substances, initial encounter; I12.9 Hypertensive chronic kidney disease with stage 1 through stage 4 chronic kidney disease, or unspecified chronic kidney disease; E11.22 Type 2 diabetes mellitus with diabetic chronic kidney disease; N18.3 Chronic kidney disease, stage 3 (moderate); M10.9 Gout, unspecified; R62.50 Unspecified lack of expected normal physiological development in childhood; E66.3 Overweight; Z68.33 Body mass index [BMI] 33.0-33.9, adult; Z79.82 Long term (current) use of aspirin; Z79.899 Other long term (current) drug therapy; Z80.0 Family history of malignant neoplasm of digestive organs; Z86.010 Personal history of colon polyps; Z84.2 Family history of other diseases of the genitourinary system
CPT/HCPCS: 36415; 71046; 76770; 80048; 81003; 82043; 82570; 83605; 83630; 83690; 84156; 84484; 85025; 87045; 87046; 87493; 93005; 96361; 96374; 96376; 99284; A9270; G0378; 80053; 81001; 84443; 87081; 87086

== ENCOUNTER 2019-01-07 11:35 | Outpatient (CLI) | payer MEDICARE, BC ==
[2019-01-07 18:57] LABS: ALBUMIN 3.3 g/dL (3.2-5.5); ALBUMIN/GLOBULIN RATIO 1.2 (1.0-2.2); BILIRUBIN,TOTAL 0.4 mg/dL (0.2-1.0); CALCIUM 8.6 mg/dL (8.5-10.3); CREATININE 1.2 mg/dL (0.6-1.2)
== END 2019-01-07 11:36 | disposition home or self-care (01) ==
LOC: LAB.WCP 11:35
PROVIDERS: ATTEND Family Medicine
DX: M10.9 Gout, unspecified (principal); I12.9 Hypertensive chronic kidney disease with stage 1 through stage 4 chronic kidney disease, or unspecified chronic kidney disease; N18.3 Chronic kidney disease, stage 3 (moderate)
CPT/HCPCS: 36415; 80053

== ENCOUNTER 2019-01-15 10:24 | Inpatient (IN) | payer MEDICARE, BC ==
[2019-01-15 11:09] LABS: BASOPHILS % (AUTO) 0.5 %; EOSINOPHILS # (AUTO) 0.7 10^3/uL (0.0-0.7); EOSINOPHILS % (AUTO) 15.9 %; LYMPHOCYTES # (AUTO) 0.7 10^3/uL (1.5-3.5); MEAN CORPUSCULAR HEMOGLOBIN 31.3 pg (27.0-31.0); MEAN CORPUSCULAR HGB CONC 33.9 g/dL (32.0-36.0); MEAN CORPUSCULAR VOLUME 92.2 fL (80.0-94.0); MEAN PLATELET VOLUME 8.2 fL (7.4-11.4); MONOCYTES # (AUTO) 0.2 10^3/uL (0.0-1.0); MONOCYTES % (AUTO) 5.3 %; NEUTROPHILS # (AUTO) 2.9 10^3/uL (1.5-6.6); NEUTROPHILS % (AUTO) 63.3 %; PLT - PLATELET COUNT 133 10^3/uL (130-450); RED BLOOD COUNT 2.12 10^6/uL (4.70-6.10); RED CELL DISTRIBUTION WIDTH 15.4 % (12.0-15.0); WHITE BLOOD COUNT 4.6 x10^3/uL (4.8-10.8)
[2019-01-15 11:17] LABS: INR 1.2 (0.8-1.2); PT - PROTHROMBIN TIME 13.9 secs (9.9-12.6)
[2019-01-15 11:18] LABS: HGB - HEMOGLOBIN 6.6 g/dL (14.0-18.0)
[2019-01-15 11:19] LABS: ALBUMIN 2.8 g/dL (3.2-5.5); ALBUMIN/GLOBULIN RATIO 1.2 (1.0-2.2); BILIRUBIN,TOTAL 0.6 mg/dL (0.2-1.0); CREATININE 1.4 mg/dL (0.6-1.2); TOTAL PROTEIN 5.1 g/dL (6.7-8.2)
[2019-01-15 11:24] LABS: PLATELET ESTIMATE, MANUAL NORMAL (130-450,000) (NORMAL); PLATELET MORPHOLOGY NORMAL APPEARANCE (NORMAL)
[2019-01-15 11:25] LABS: PARTIAL THROMBOPLASTIN TIME 23.2 secs (24.9-33.3)
--- NOTE | 2019-01-15 11:32 | ED Physician Documentation ---
PD HPI GI BLEED - Stated complaint Stated Complaint: BLACK STOOL - Chief complaint Chief Complaint: Abd Pain - History obtained from History obtained from: Patient - History of Present Illness Timing - onset: Today, Last night Timing - details: Abrupt onset, Still present (He has had 3-4 sizable dark stools that are soft and runny. He is feeling generally weak but not postural lightheadedness or and no near syncope. He does not have any abdominal pain. No nausea or vomiting.) Associated symptoms: Black/tarry stool Contributing factors: No: Sick contact, Bad food, NSAID use (but did use steroids for gout, ended couple days ago) Recently seen: Emergency Dept, Admitted (He was seen for general weakness and dehydration and renal insufficiency on 01/02/2019 and in the hospital overnight with IV fluid hydration and improvement in his renal function and general is feeling better. He did have a gout episode around that time and was placed on steroids as well with a 10-day taper.He just finished the steroids a couple of days ago. He had been not having any abdominal pain. No nausea or vomiting. He started with the dark stool just overnight and into today.) Review of Systems Constitutional: reports: Fatigue. denies: Fever, Myalgias Nose: denies: Rhinorrhea / runny nose, Congestion Throat: denies: Sore throat Respiratory: denies: Cough GI: reports: Bloody / black stool. denies: Abdominal Pain, Nausea, Vomiting, Diarrhea : denies: Dysuria, Frequency Neurologic: reports: Generalized weakness. denies: Focal weakness, Numbness, Near syncope PD PAST MEDICAL HISTORY - Past Medical History Cardiovascular: Hypertension, High cholesterol Respiratory: None Neuro: None Endocrine/Autoimmune: Type 2 diabetes GI: None : None, Other HEENT: None Psych: None Musculoskeletal: None Derm: None Other Past Medical History: recently diagnosed with acute kidney failure - Past Surgical History Past Surgical History: No General: Colonoscopy HEENT: Other - Present Medications Home Medications: Ambulatory Orders Medication Instructions Recorded Confirmed Aspirin [Aspir-Low] 81 mg ORAL DAILY 10/19/15 01/15/19 Simvastatin 10 mg PO QPM 10/19/15 01/15/19 Allopurinol 100 mg PO DAILY 01/02/19 01/15/19 Carvedilol 25 mg PO BID 01/15/19 01/15/19 Lactobacillus Rhamnosus GG 1 cap PO DAILY 01/15/19 01/15/19 [Culturelle] - Allergies Allergies/Adverse Reactions: Allergies Allergy/AdvReac Type Severity Reaction Status Date / Time No Known Drug Allergies Allergy Verified 01/15/19 10:29 - Social History Does the pt smoke?: No Smoking Status: Never smoker Does the pt drink ETOH?: Yes Does the pt have substance abuse?: No - Immunizations Immunizations are current?: Yes PD ED PE NORMAL - Vitals Vital signs reviewed: Yes - General General: Alert and oriented X 3, Well developed/nourished - HEENT HEENT: Pharynx benign - Neck Neck: Supple, no meningeal sign, No adenopathy - Cardiac Cardiac: RRR, No murmur - Respiratory Respiratory: Clear bilaterally - Abdomen Abdomen: Normal bowel sounds, Soft, Non tender, Non distended - Male Male : Deferred - Rectal Rectal: Other (soft stool in vault that is melena, strongly guiac positive. ) - Back Back: No CVA TTP - Derm Derm: Warm and dry, Other (mild pallor) - Extremities Extremities: No deformity, No tenderness to palpate - Neuro Neuro: Alert and oriented X 3, No motor deficit, Normal speech Results - Vitals Vitals: Vital Signs - 24 hr 01/15/19 01/15/19 01/15/19 10:28 10:55 12:43 Temperature 36 C L 36.4 C L Heart Rate 95 82 87 Respiratory 20 20 21 Rate Blood Pressure 96/58 L 123/72 125/63 O2 Saturation 99 100 Oxygen O2 Source Room air - Labs Labs: Laboratory Tests 01/15/19 01/15/19 01/15/19 10:57 10:57 10:57 WBC 4.6 L RBC 2.12 L Hgb 6.6 L* Hct 19.6 L* MCV 92.2 MCH 31.3 H MCHC 33.9 RDW 15.4 H Plt Count 133 MPV 8.2 Neut # (Auto) 2.9 Lymph # (Auto) 0.7 L [place] # (Auto) 0.2 Eos # (Auto) 0.7 Baso # (Auto) 0.0 Absolute Nucleated RBC 0.00 Nucleated RBC % 0.0 Platelet Estimate NORMAL (130-450,000) Platelet Morphology NORMAL APPEARANCE RBC Morph Micro Appear 1+ OVALOCYTES PT 13.9 H INR 1.2 APTT 23.2 L Sodium 136 Potassium 5.3 H Chloride 106 Carbon Dioxide 20 L Anion Gap 10.0 BUN 50 H Creatinine 1.4 H Estimated GFR (MDRD) 50 L Glucose 178 H Calcium 8.0 L Total Bilirubin 0.6 AST 18 ALT 26 Alkaline Phosphatase 39 L Total Protein 5.1 L Albumin 2.8 L Globulin 2.3 Albumin/Globulin Ratio 1.2 Lipase 40 Blood Type Blood Type Recheck Antibody Screen Crossmatch IS Only 01/15/19 01/15/19 10:57 11:25 WBC RBC Hgb Hct MCV MCH MCHC RDW Plt Count MPV Neut # (Auto) Lymph # (Auto) [place] # (Auto) Eos # (Auto) Baso # (Auto) Absolute Nucleated RBC Nucleated RBC % Platelet Estimate Platelet Morphology RBC Morph Micro Appear PT INR APTT Sodium Potassium Chloride Carbon Dioxide Anion Gap BUN Creatinine Estimated GFR (MDRD) Glucose Calcium Total Bilirubin AST ALT Alkaline Phosphatase Total Protein Albumin Globulin Albumin/Globulin Ratio Lipase Blood Type A POSITIVE Blood Type Recheck A POSITIVE Antibody Screen NEGATIVE Crossmatch IS Only See Detail PD MEDICAL DECISION MAKING - ED course Complexity details: considered differential (Acute GI bleed, probably gastric and presumably related to recent steroid use for gout. He does not have any abdominal pain or tenderness so I do not see reason for imaging. His blood count is significantly low and will transfuse. He is given H2 blockers and PPI IV as well as IV fluids. His blood pressure is stable.), d/w patient Departure - Departure Disposition: 66 [facility] DC/Xfer Clinical Impression: Acute post-hemorrhagic anemia GI bleed Qualifiers: GI bleed type/associated pathology: melena Qualified Code(s): K92.1 - Melena Condition: Stable Record reviewed to determine appropriate education?: Yes Discharge Date/Time: 01/15/19 13:47
[2019-01-15] MEDS ORDERED: SODIUM CHLORIDE 0.9% 1,000 ML IV ONE ×2 (11:53→11:54)
[2019-01-15] MEDS ORDERED: FAMOTIDINE 20 MG/2 ML VIAL IVP STA (11:54)
[2019-01-15] MEDS ORDERED: PANTOPRAZOLE 40 MG VIAL IVP STA (11:54)
[2019-01-15] MEDS ORDERED: ONDANSETRON 4 MG/2 ML VIAL IVP PRN (13:00)
[2019-01-15] MEDS: SODIUM CHLORIDE 0.9% 1,000 ML IV SCH (14:17)
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
[2019-01-15 19:12] LABS: HGB - HEMOGLOBIN 8.1 g/dL (14.0-18.0)
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
[2019-01-15] MEDS ORDERED: diphenhydrAMINE INJ 50 MG/ML VIAL IVP PRN (19:34)
[2019-01-15] MEDS: PANTOPRAZOLE 40 MG VIAL IVP SCH (21:26)
[2019-01-15] MEDS: SODIUM CHLORIDE FLUSH 0.9% 10 ML SYRINGE IVP SCH (21:27)
[2019-01-16] MEDS: SODIUM CHLORIDE 0.9% 1,000 ML IV SCH ×2 (02:13→12:01)
[2019-01-16] MEDS: SODIUM CHLORIDE FLUSH 0.9% 10 ML SYRINGE IVP SCH ×3 (02:15→17:45)
[2019-01-16 06:01] LABS: BASOPHILS % (AUTO) 0.3 %; EOSINOPHILS # (AUTO) 0.8 10^3/uL (0.0-0.7); HGB - HEMOGLOBIN 7.1 g/dL (14.0-18.0); LYMPHOCYTES # (AUTO) 0.8 10^3/uL (1.5-3.5); LYMPHOCYTES % (AUTO) 22.2 %; MEAN CORPUSCULAR HEMOGLOBIN 31.8 pg (27.0-31.0); MEAN CORPUSCULAR HGB CONC 33.8 g/dL (32.0-36.0); MEAN CORPUSCULAR VOLUME 94.1 fL (80.0-94.0); MEAN PLATELET VOLUME 8.2 fL (7.4-11.4); MONOCYTES # (AUTO) 0.2 10^3/uL (0.0-1.0); MONOCYTES % (AUTO) 6.7 %; NEUTROPHILS # (AUTO) 1.8 10^3/uL (1.5-6.6); NEUTROPHILS % (AUTO) 48.8 %; PLT - PLATELET COUNT 105 10^3/uL (130-450); RED BLOOD COUNT 2.24 10^6/uL (4.70-6.10); WHITE BLOOD COUNT 3.6 x10^3/uL (4.8-10.8)
[2019-01-16 06:06] LABS: INR 1.3 (0.8-1.2); PT - PROTHROMBIN TIME 14.2 secs (9.9-12.6)
[2019-01-16 06:13] LABS: ALBUMIN 2.5 g/dL (3.2-5.5); ALBUMIN/GLOBULIN RATIO 1.3 (1.0-2.2); BILIRUBIN,TOTAL 0.6 mg/dL (0.2-1.0); CALCIUM 7.5 mg/dL (8.5-10.3); CREATININE 1.4 mg/dL (0.6-1.2); MAGNESIUM 1.1 mg/dL (1.7-2.8); PHOSPHORUS 2.8 mg/dL (2.5-4.6); TOTAL PROTEIN 4.5 g/dL (6.7-8.2)
[2019-01-16 06:14] LABS: HB2 TOTAL 7.2 g/dL; HEMOGLOBIN A1C 0.27 g/dL; HEMOGLOBIN A1C % 5.6 % (4.6-6.2)
[2019-01-16] MEDS ORDERED: MAGNESIUM SULFATE 2 GRAM 2 GM/50 ML BAG IV ONE (06:43)
[2019-01-16] MEDS ORDERED: PANTOPRAZOLE 40 MG VIAL IVP SCH (07:00)
[2019-01-16] MEDS: PANTOPRAZOLE 40 MG VIAL IVP SCH ×2 (08:53→20:47)
[2019-01-16] MEDS: SODIUM CHLORIDE FLUSH 0.9% 10 ML SYRINGE IVP PRN ×2 (08:54→20:48)
[2019-01-16] MEDS: POLYETHYLENE GLYCOL 3350 17 GM PACKET PO SCH (09:22)
[2019-01-16 12:22] LABS: HGB - HEMOGLOBIN 6.1 g/dL (14.0-18.0)
[2019-01-16] MEDS ORDERED: LIDO GARGLE 30 ML BOTTLE PO ONE (14:10)
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
--- NOTE | 2019-01-16 15:52 | PROVIDER PROGRESS NOTE ---
Subjective - Prog Note Date Prog Note Date: 01/16/19 - Subjective Pt reports feeling: Worse Subjective: pt report he took Aspirin at home, denies he took another blood thinner. he denies chest pain. had HGB 6.6 initially, then pt had two units of blood transfused in ER. His HGB was upto 8.1 but now his HGB is drop to 6.1 again. Another two units of blood was ordered. nurse report pt had a large black tarry stool today morning, and pt feels dizziness. it appears pt has acute bleed. EGD is doing right now for pt. Current Medications - Current Medications Current Medications: Active Medications Diphenhydramine HCl (Benadryl Inj) 25 mg IVP Q6H PRN PRN Reason: Allergy Symptoms Last Admin: 01/15/19 21:26 Dose: 25 mg Sodium Chloride (Normal Saline 0.9%) 1,000 mls @ 100 mls/hr IV .Q10H [facility] Last Admin: 01/16/19 12:01 Dose: 100 mls/hr Ondansetron HCl (Zofran Inj) 4 mg IVP Q6HR PRN PRN Reason: Nausea / Vomiting Pantoprazole Sodium (Protonix) 40 mg IVP BID [facility] Last Admin: 01/16/19 08:53 Dose: 40 mg Polyethylene Glycol (Miralax) 17 gm PO DAILY [facility] Last Admin: 01/16/19 09:22 Dose: Not Given Sodium Chloride (Normal Saline Flush 0.9%) 10 ml IVP PRN PRN PRN Reason: NEEDED PER PROVIDER ORDERS Last Admin: 01/16/19 08:54 Dose: 10 ml Sodium Chloride (Normal Saline Flush 0.9%) 10 ml IVP 0100,0900,1700 [facility] Last Admin: 01/16/19 08:54 Dose: 10 ml Aspirin [Aspir-Low] 81 mg ORAL DAILY 10/19/15 Simvastatin 10 mg PO QPM 10/19/15 Allopurinol 100 mg PO DAILY 01/02/19 Carvedilol 25 mg PO BID 01/15/19 Lactobacillus Rhamnosus GG [Culturelle] 1 cap PO DAILY 01/15/19 Objective - Vital Signs/Intake & Output Reviewed Vital Signs: Yes Vital Signs: Vital Signs x48h Temp Pulse Pulse Resp BP BP Pulse Ox 05/16/19 13:20 36.9 C 92 18 104/67 01/16/19 12:58 37.0 C 92 18 110/67 01/16/19 11:59 94 18 104/65 100 Intake & Output: Intake & Output 01/13/19 01/14/19 01/15/19 01/16/19 23:59 23:59 23:59 23:59 Intake Total 2991.667 2208.333 Output Total 925 1865 Balance 2066.667 343.333 - Objective General Appearance: positive: No acute distress, Alert. negative: Lethargic Eyes Bilateral: positive: Normal inspection, PERRL, No lid inflammation, Conjunctivae nml ENT: positive: ENT inspection nml, Pharynx nml, No signs of dehydration. negative: Purulent nasal drainage, Pharyngeal erythema, Oral lesions Neck: positive: Nml inspection, Thyroid nml, No JVD, Trachea midline. negative: Thyromegaly, Lymphadenopathy (R), Lymphadenopathy (L), Stiff neck, Swelling/bruising, Tracheal deviation Respiratory: positive: Chest non-tender, No respiratory distress, Breath sounds nml. negative: Wheezes, Rales, Rhonchi Cardiovascular: positive: Regular rate & rhythm, No murmur, No gallop. negative: Irregularly irregular, Extrasystoles, Tachycardia, Bradycardia, JVD present, Friction rub, Decreased pulse(s) Peripheral Pulses: 2+ Radial (R), 2+ Radial (L), 2+ Dorsalis pedis (R), 2+ Dorsalis pedis (L) Abdomen: positive: Non-tender, No organomegaly, Nml bowel sounds, No distention. negative: Tenderness, Guarding, Rebound Back: positive: Nml inspection. negative: CVA tenderness (R), CVA tenderness (L) Skin: positive: Color nml, No rash, Warm, Dry. negative: Cyanosis, Diaphoresis, Pallor, Skin rash Extremities: positive: Non-tender, Full ROM, Nml appearance. negative: Calf tenderness, Joint swelling, Gilbert's sign/cords Neurologic/Psychiatric: positive: Oriented x3, Sensation nml. negative: Weakness, Sensory loss, Facial droop, Slurred/abnml speech, Depressed mood/affect - Lab Results Fish Bones: 01/16/19 12:11 01/16/19 05:19 Other Labs: Lab Results x24hrs 01/16/19 01/16/19 01/16/19 Range/Units 12:11 05:19 05:19 WBC (4.8-10.8) x10^3/uL RBC (4.70-6.10) 10^6/uL Hgb 6.1 L* (14.0-18.0) g/dL Hct 18.1 L* (42.0-52.0) % MCV (80.0-94.0) fL MCH (27.0-31.0) pg MCHC (32.0-36.0) g/dL RDW (12.0-15.0) % Plt Count (130-450) 10^3/uL MPV (7.4-11.4) fL Neut # (Auto) (1.5-6.6) 10^3/uL Lymph # (Auto) (1.5-3.5) 10^3/uL Garrard # (Auto) (0.0-1.0) 10^3/uL Eos # (Auto) (0.0-0.7) 10^3/uL Baso # (Auto) (0.0-0.1) 10^3/uL Absolute Nucleated RBC x10^3/uL Nucleated RBC % /100WBC PT (9.9-12.6) secs INR (0.8-1.2) Sodium 140 (135-145) mmol/L Potassium 4.0 (3.5-5.0) mmol/L Chloride 110 (101-111) mmol/L Carbon Dioxide 21 (21-32) mmol/L Anion Gap 9.0 (6-13) BUN 38 H (6-20) mg/dL Creatinine 1.4 H (0.6-1.2) mg/dL Estimated GFR (MDRD) 50 L (>89) Glucose 90 (70-100) mg/dL Glycated Hemoglobin 5.6 (4.6-6.2) % Estim Average Glucose 114 H (70-100) Calcium 7.5 L (8.5-10.3) mg/dL Phosphorus 2.8 (2.5-4.6) mg/dL Magnesium 1.1 L (1.7-2.8) mg/dL Total Bilirubin 0.6 (0.2-1.0) mg/dL GGT 8 (8-55) IU/L AST 14 (10-42) IU/L ALT 19 (10-60) IU/L Alkaline Phosphatase 34 L (42-121) IU/L Total Protein 4.5 L (6.7-8.2) g/dL Albumin 2.5 L (3.2-5.5) g/dL Globulin 2.0 L (2.1-4.2) g/dL Albumin/Globulin Ratio 1.3 (1.0-2.2) Blood Type Antibody Screen Crossmatch IS Only 01/16/19 01/16/19 01/15/19 Range/Units 05:19 05:19 19:04 WBC 3.6 L (4.8-10.8) x10^3/uL RBC 2.24 L (4.70-6.10) 10^6/uL Hgb 7.1 L 8.1 L (14.0-18.0) g/dL Hct 21.1 L 23.6 L (42.0-52.0) % MCV 94.1 H (80.0-94.0) fL MCH 31.8 H (27.0-31.0) pg MCHC 33.8 (32.0-36.0) g/dL RDW 15.0 (12.0-15.0) % Plt Count 105 L (130-450) 10^3/uL MPV 8.2 (7.4-11.4) fL Neut # (Auto) 1.8 (1.5-6.6) 10^3/uL Lymph # (Auto) 0.8 L (1.5-3.5) 10^3/uL Garrard # (Auto) 0.2 (0.0-1.0) 10^3/uL Eos # (Auto) 0.8 H (0.0-0.7) 10^3/uL Baso # (Auto) 0.0 (0.0-0.1) 10^3/uL Absolute Nucleated RBC 0.00 x10^3/uL Nucleated RBC % 0.1 /100WBC PT 14.2 H (9.9-12.6) secs INR 1.3 H (0.8-1.2) Sodium (135-145) mmol/L Potassium (3.5-5.0) mmol/L Chloride (101-111) mmol/L Carbon Dioxide (21-32) mmol/L Anion Gap (6-13) BUN (6-20) mg/dL Creatinine (0.6-1.2) mg/dL Estimated GFR (MDRD) (>89) Glucose (70-100) mg/dL Glycated Hemoglobin (4.6-6.2) % Estim Average Glucose (70-100) Calcium (8.5-10.3) mg/dL Phosphorus (2.5-4.6) mg/dL Magnesium (1.7-2.8) mg/dL Total Bilirubin (0.2-1.0) mg/dL GGT (8-55) IU/L AST (10-42) IU/L ALT (10-60) IU/L Alkaline Phosphatase (42-121) IU/L Total Protein (6.7-8.2) g/dL Albumin (3.2-5.5) g/dL Globulin (2.1-4.2) g/dL Albumin/Globulin Ratio (1.0-2.2) Blood Type Antibody Screen Crossmatch IS Only 01/15/19 Range/Units 10:57 WBC (4.8-10.8) x10^3/uL RBC (4.70-6.10) 10^6/uL Hgb (14.0-18.0) g/dL Hct (42.0-52.0) % MCV (80.0-94.0) fL MCH (27.0-31.0) pg MCHC (32.0-36.0) g/dL RDW (12.0-15.0) % Plt Count (130-450) 10^3/uL MPV (7.4-11.4) fL Neut # (Auto) (1.5-6.6) 10^3/uL Lymph # (Auto) (1.5-3.5) 10^3/uL Garrard # (Auto) (0.0-1.0) 10^3/uL Eos # (Auto) (0.0-0.7) 10^3/uL Baso # (Auto) (0.0-0.1) 10^3/uL Absolute Nucleated RBC x10^3/uL Nucleated RBC % /100WBC PT (9.9-12.6) secs INR (0.8-1.2) Sodium (135-145) mmol/L Potassium (3.5-5.0) mmol/L Chloride (101-111) mmol/L Carbon Dioxide (21-32) mmol/L Anion Gap (6-13) BUN (6-20) mg/dL Creatinine (0.6-1.2) mg/dL Estimated GFR (MDRD) (>89) Glucose (70-100) mg/dL Glycated Hemoglobin (4.6-6.2) % Estim Average Glucose (70-100) Calcium (8.5-10.3) mg/dL Phosphorus (2.5-4.6) mg/dL Magnesium (1.7-2.8) mg/dL Total Bilirubin (0.2-1.0) mg/dL GGT (8-55) IU/L AST (10-42) IU/L ALT (10-60) IU/L Alkaline Phosphatase (42-121) IU/L Total Protein (6.7-8.2) g/dL Albumin (3.2-5.5) g/dL Globulin (2.1-4.2) g/dL Albumin/Globulin Ratio (1.0-2.2) Blood Type A POSITIVE Antibody Screen NEGATIVE Crossmatch IS Only See Detail ABX Reporting Has patient been on IV antibiotics over the past 48 hours?: No Sepsis Event Note (H) - Evaluation Current Stage of Sepsis: Ruled out Assessment/Plan - Problem List (1) GI bleed Impression: pt continue drop of HGB, and had another black stool on today morning. order blood transfusion of two units EGD and consult with GI surgeon H&H continue monitor hold Aspirin continue PPI Qualifiers: GI bleed type/associated pathology: melena Qualified Code(s): K92.1 - Melena (2) Anemia Impression: it appear from acute GI bleed blood transfusion as needed continue H&H followup EGD (3) Diabetes mellitus type 2, diet-controlled Impression: A1C is 5.6, it seems well controlled DM2 pt is NPO now for EGD, check blood glucose, continue hypoglycemia protocol (4) Essential hypertension Impression: pt's blood pressure is the low side, will hold pt's home BP meds now. vital monitor
[2019-01-16] MEDS ORDERED: LIDO GARGLE 30 ML BOTTLE ONE (16:18)
[2019-01-16] MEDS ORDERED: LACTATED RINGERS 1,000 ML IV ONE (16:29)
[2019-01-16] MEDS ORDERED: EPINEPHrine 1 MG/ML AMP IVP ONE (16:35)
[2019-01-16] MEDS ORDERED: PROPOFOL 200 MG/20 ML VIAL IVP ONE (16:51)
[2019-01-16] MEDS ORDERED: LIDOCAINE-MPF 2% 5 ML VIAL IM ONE (16:51)
[2019-01-16] MEDS ORDERED: LORazepam 0.5 MG TABLET PO PRN (18:27)
[2019-01-16] MEDS: SODIUM/POTASSIUM/MAG SULFATES 354 ML PREP KIT PO SCH (20:34)
[2019-01-16] MEDS: D5.45NS W/20 MEQ KCL 1,000 ML IV SCH (20:34)
[2019-01-16 21:15] LABS: HGB - HEMOGLOBIN 8.9 g/dL (14.0-18.0)
[2019-01-16 23:46] LABS: HGB - HEMOGLOBIN 8.1 g/dL (14.0-18.0)
[2019-01-17] MEDS: SODIUM CHLORIDE FLUSH 0.9% 10 ML SYRINGE IVP SCH ×3 (01:25→17:02)
[2019-01-17] MEDS: SODIUM/POTASSIUM/MAG SULFATES 354 ML PREP KIT PO SCH (05:00)
[2019-01-17] MEDS: D5.45NS W/20 MEQ KCL 1,000 ML IV SCH (06:03)
[2019-01-17 06:33] LABS: BASOPHILS % (AUTO) 0.6 %; EOSINOPHILS # (AUTO) 0.7 10^3/uL (0.0-0.7); EOSINOPHILS % (AUTO) 13.1 %; HGB - HEMOGLOBIN 9.3 g/dL (14.0-18.0); LYMPHOCYTES # (AUTO) 1.3 10^3/uL (1.5-3.5); LYMPHOCYTES % (AUTO) 23.6 %; MEAN CORPUSCULAR HEMOGLOBIN 32.2 pg (27.0-31.0); MEAN CORPUSCULAR HGB CONC 34.4 g/dL (32.0-36.0); MEAN CORPUSCULAR VOLUME 93.8 fL (80.0-94.0); MEAN PLATELET VOLUME 8.2 fL (7.4-11.4); MONOCYTES # (AUTO) 0.3 10^3/uL (0.0-1.0); MONOCYTES % (AUTO) 5.9 %; NEUTROPHILS % (AUTO) 56.8 %; PLT - PLATELET COUNT 126 10^3/uL (130-450); RED BLOOD COUNT 2.88 10^6/uL (4.70-6.10); RED CELL DISTRIBUTION WIDTH 15.9 % (12.0-15.0); WHITE BLOOD COUNT 5.3 x10^3/uL (4.8-10.8)
[2019-01-17 06:40] LABS: CALCIUM 7.6 mg/dL (8.5-10.3); CREATININE 1.4 mg/dL (0.6-1.2); MAGNESIUM 1.6 mg/dL (1.7-2.8)
[2019-01-17] MEDS: POLYETHYLENE GLYCOL 3350 17 GM PACKET PO SCH (08:59)
[2019-01-17] MEDS: PANTOPRAZOLE 40 MG VIAL IVP SCH ×2 (08:59→21:26)
[2019-01-17] MEDS ORDERED: MAGNESIUM SULFATE 1 GM in SODIUM CHLORIDE 0.9% 50 ML IV ONE (09:30)
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
[2019-01-17] MEDS ORDERED: SODIUM CHLORIDE 0.9% 1,000 ML IV ONE (11:44)
[2019-01-17] MEDS ORDERED: PROPOFOL 200 MG/20 ML VIAL IVP ONE (12:10)
[2019-01-17] MEDS ORDERED: SODIUM CHLORIDE 0.9% 10 ML VIAL IV ONE (12:10)
[2019-01-17] MEDS ORDERED: MIDAZOLAM 2 MG/2 ML VIAL IVP ONE (12:10)
[2019-01-17] MEDS ORDERED: KETAMINE 500 MG/10 ML VIAL IVP ONE (12:10)
[2019-01-17 12:43] LABS: HGB - HEMOGLOBIN 7.4 g/dL (14.0-18.0)
[2019-01-17 14:39] LABS: BASOPHILS % (AUTO) 0.7 %; EOSINOPHILS # (AUTO) 0.6 10^3/uL (0.0-0.7); EOSINOPHILS % (AUTO) 14.2 %; HGB - HEMOGLOBIN 7.6 g/dL (14.0-18.0); LYMPHOCYTES % (AUTO) 23.1 %; MEAN CORPUSCULAR HEMOGLOBIN 31.7 pg (27.0-31.0); MEAN CORPUSCULAR HGB CONC 34.1 g/dL (32.0-36.0); MEAN PLATELET VOLUME 7.4 fL (7.4-11.4); MONOCYTES # (AUTO) 0.3 10^3/uL (0.0-1.0); MONOCYTES % (AUTO) 7.2 %; NEUTROPHILS # (AUTO) 2.4 10^3/uL (1.5-6.6); NEUTROPHILS % (AUTO) 54.8 %; PLT - PLATELET COUNT 101 10^3/uL (130-450); RED CELL DISTRIBUTION WIDTH 15.4 % (12.0-15.0); WHITE BLOOD COUNT 4.5 x10^3/uL (4.8-10.8)
[2019-01-17 15:04] LABS: BILIRUBIN,DIRECT 0.1 mg/dL (0.1-0.5); BILIRUBIN,INDIRECT 0.4 mg/dL; BILIRUBIN,TOTAL 0.5 mg/dL (0.2-1.0)
--- NOTE | 2019-01-17 15:49 | PROVIDER PROGRESS NOTE ---
Subjective - Prog Note Date Prog Note Date: 01/17/19 - Subjective Pt reports feeling: Improved Subjective: pt's HGB is down to 7.4 from motor tune up specialist HGB 9.3, although colonoscopy and EGD did not find acute bleeding site. retest CBC still reveals HGB 7.6. pt had motor tune up specialist bowel movement, the stool color is normal. pt report he feel better hemolytic test is pending Current Medications - Current Medications Current Medications: Active Medications Diphenhydramine HCl (Benadryl Inj) 25 mg IVP Q6H PRN PRN Reason: Allergy Symptoms Last Admin: 01/15/19 21:26 Dose: 25 mg Lorazepam (Ativan) 0.5 mg PO Q6H PRN PRN Reason: Anxiety Ondansetron HCl (Zofran Inj) 4 mg IVP Q6HR PRN PRN Reason: Nausea / Vomiting Last Admin: 01/16/19 17:45 Dose: 4 mg Pantoprazole Sodium (Protonix) 40 mg IVP BID [facility] Last Admin: 01/17/19 08:59 Dose: 40 mg Polyethylene Glycol (Miralax) 17 gm PO DAILY [facility] Last Admin: 01/17/19 08:59 Dose: Not Given Sodium Chloride (Normal Saline Flush 0.9%) 10 ml IVP PRN PRN PRN Reason: NEEDED PER PROVIDER ORDERS Last Admin: 01/16/19 20:48 Dose: 10 ml Sodium Chloride (Normal Saline Flush 0.9%) 10 ml IVP 0100,0900,1700 [facility] Last Admin: 01/17/19 08:59 Dose: 10 ml Aspirin [Aspir-Low] 81 mg ORAL DAILY 10/19/15 Simvastatin 10 mg PO QPM 10/19/15 Allopurinol 100 mg PO DAILY 01/02/19 Carvedilol 25 mg PO BID 01/15/19 Lactobacillus Rhamnosus GG [Culturelle] 1 cap PO DAILY 01/15/19 Objective - Vital Signs/Intake & Output Reviewed Vital Signs: Yes Vital Signs: Vital Signs x48h Temp Pulse Pulse Resp BP BP BP 01/17/19 12:41 36.2 C L 99 14 116/63 01/17/19 12:20 36.3 C L 102 H 17 118/74 01/17/19 12:15 104 H 16 110/73 01/17/19 12:10 103 H 16 115/73 01/17/19 12:08 36.3 C L 107 H 14 112/73 01/17/19 10:46 36.7 C 89 18 134/83 H 01/17/19 08:00 37 C 90 20 131/69 H Pulse Ox 01/17/19 12:41 100 01/17/19 12:20 100 01/17/19 12:15 100 01/17/19 12:10 100 01/17/19 12:08 100 01/17/19 10:46 98 01/17/19 08:00 99 Intake & Output: Intake & Output 01/14/19 01/15/19 01/16/19 01/17/19 23:59 23:59 23:59 23:59 Intake Total 2991.667 3465.000 5360.333 Output Total 925 2315 200 Balance 2066.667 3111.198 8585.333 - Objective General Appearance: positive: No acute distress, Alert. negative: Lethargic Eyes Bilateral: positive: Normal inspection, No lid inflammation, Conjunctivae nml ENT: positive: ENT inspection nml, Pharynx nml, No signs of dehydration. negative: Purulent nasal drainage, Pharyngeal erythema, Oral lesions Neck: positive: Nml inspection, Thyroid nml, No JVD, Trachea midline. negative: Thyromegaly, Lymphadenopathy (R), Lymphadenopathy (L), Stiff neck, Swelling/bruising, Tracheal deviation Respiratory: positive: Chest non-tender, No respiratory distress, Breath sounds nml. negative: Wheezes, Rales, Rhonchi Cardiovascular: positive: Regular rate & rhythm, No murmur, No gallop. negative: Irregularly irregular, Extrasystoles, Tachycardia, Bradycardia, JVD present, Systolic murmur, Diastolic murmur Peripheral Pulses: 2+ Radial (R), 2+ Radial (L), 2+ Dorsalis pedis (R), 2+ Dorsalis pedis (L) Abdomen: positive: Non-tender, No organomegaly, Nml bowel sounds, No distention. negative: Tenderness, Guarding, Rebound Back: positive: Nml inspection. negative: CVA tenderness (R), CVA tenderness (L) Skin: positive: Color nml, No rash, Warm, Dry. negative: Cyanosis, Diaphoresis, Pallor Extremities: positive: Non-tender, Full ROM, Nml appearance. negative: Calf tenderness, Joint swelling, Gilbert's sign/cords Neurologic/Psychiatric: positive: Oriented x3, Motor nml, Sensation nml, Mood/affect nml. negative: Weakness, Sensory loss, Facial droop, Slurred/abnml speech, Depressed mood/affect - Lab Results Fish Bones: 01/18/19 12:00 01/18/19 05:30 Other Labs: Lab Results x24hrs 01/17/19 01/17/19 01/17/19 Range/Units 14:35 14:35 14:35 WBC 4.5 L (4.8-10.8) x10^3/uL RBC 2.40 L (4.70-6.10) 10^6/uL Hgb 7.6 L (14.0-18.0) g/dL Hct 22.4 L (42.0-52.0) % MCV 93.0 (80.0-94.0) fL MCH 31.7 H (27.0-31.0) pg MCHC 34.1 (32.0-36.0) g/dL RDW 15.4 H (12.0-15.0) % Plt Count 101 L (130-450) 10^3/uL MPV 7.4 (7.4-11.4) fL Neut # (Auto) 2.4 (1.5-6.6) 10^3/uL Lymph # (Auto) 1.0 L (1.5-3.5) 10^3/uL Barber # (Auto) 0.3 (0.0-1.0) 10^3/uL Eos # (Auto) 0.6 (0.0-0.7) 10^3/uL Baso # (Auto) 0.0 (0.0-0.1) 10^3/uL Absolute Nucleated RBC 0.00 x10^3/uL Nucleated RBC % 0.0 /100WBC Sodium (135-145) mmol/L Potassium (3.5-5.0) mmol/L Chloride (101-111) mmol/L Carbon Dioxide (21-32) mmol/L Anion Gap (6-13) BUN (6-20) mg/dL Creatinine (0.6-1.2) mg/dL Estimated GFR (MDRD) (>89) Glucose (70-100) mg/dL POC Whole Bld Glucose (70 - 100) mg/dL Calcium (8.5-10.3) mg/dL Magnesium (1.7-2.8) mg/dL Total Bilirubin 0.5 (0.2-1.0) mg/dL Direct Bilirubin 0.1 (0.1-0.5) mg/dL Indirect Bilirubin 0.4 mg/dL Lactate Dehydrogenase 122 (91-225) IU/L Blood Type Antibody Screen Crossmatch IS Only 01/17/19 01/17/19 01/17/19 Range/Units 12:30 05:40 05:40 WBC 5.3 (4.8-10.8) x10^3/uL RBC 2.88 L (4.70-6.10) 10^6/uL Hgb 7.4 L 9.3 L (14.0-18.0) g/dL Hct 21.2 L 27.0 L (42.0-52.0) % MCV 93.8 (80.0-94.0) fL MCH 32.2 H (27.0-31.0) pg MCHC 34.4 (32.0-36.0) g/dL RDW 15.9 H (12.0-15.0) % Plt Count 126 L (130-450) 10^3/uL MPV 8.2 (7.4-11.4) fL Neut # (Auto) 3.0 (1.5-6.6) 10^3/uL Lymph # (Auto) 1.3 L (1.5-3.5) 10^3/uL Barber # (Auto) 0.3 (0.0-1.0) 10^3/uL Eos # (Auto) 0.7 (0.0-0.7) 10^3/uL Baso # (Auto) 0.0 (0.0-0.1) 10^3/uL Absolute Nucleated RBC 0.00 x10^3/uL Nucleated RBC % 0.0 /100WBC Sodium 140 (135-145) mmol/L Potassium 4.2 (3.5-5.0) mmol/L Chloride 111 (101-111) mmol/L Carbon Dioxide 20 L (21-32) mmol/L Anion Gap 9.0 (6-13) BUN 41 H (6-20) mg/dL Creatinine 1.4 H (0.6-1.2) mg/dL Estimated GFR (MDRD) 50 L (>89) Glucose 164 H (70-100) mg/dL POC Whole Bld Glucose (70 - 100) mg/dL Calcium 7.6 L (8.5-10.3) mg/dL Magnesium 1.6 L (1.7-2.8) mg/dL Total Bilirubin (0.2-1.0) mg/dL Direct Bilirubin (0.1-0.5) mg/dL Indirect Bilirubin mg/dL Lactate Dehydrogenase (91-225) IU/L Blood Type Antibody Screen Crossmatch IS Only 01/17/19 01/17/19 01/16/19 Range/Units 05:24 00:34 23:35 WBC (4.8-10.8) x10^3/uL RBC (4.70-6.10) 10^6/uL Hgb 8.1 L (14.0-18.0) g/dL Hct 23.8 L (42.0-52.0) % MCV (80.0-94.0) fL MCH (27.0-31.0) pg MCHC (32.0-36.0) g/dL RDW (12.0-15.0) % Plt Count (130-450) 10^3/uL MPV (7.4-11.4) fL Neut # (Auto) (1.5-6.6) 10^3/uL Lymph # (Auto) (1.5-3.5) 10^3/uL Barber # (Auto) (0.0-1.0) 10^3/uL Eos # (Auto) (0.0-0.7) 10^3/uL Baso # (Auto) (0.0-0.1) 10^3/uL Absolute Nucleated RBC x10^3/uL Nucleated RBC % /100WBC Sodium (135-145) mmol/L Potassium (3.5-5.0) mmol/L Chloride (101-111) mmol/L Carbon Dioxide (21-32) mmol/L Anion Gap (6-13) BUN (6-20) mg/dL Creatinine (0.6-1.2) mg/dL Estimated GFR (MDRD) (>89) Glucose (70-100) mg/dL POC Whole Bld Glucose 140 H 140 H (70 - 100) mg/dL Calcium (8.5-10.3) mg/dL Magnesium (1.7-2.8) mg/dL Total Bilirubin (0.2-1.0) mg/dL Direct Bilirubin (0.1-0.5) mg/dL Indirect Bilirubin mg/dL Lactate Dehydrogenase (91-225) IU/L Blood Type Antibody Screen Crossmatch IS Only 01/16/19 01/16/19 01/16/19 Range/Units 21:10 20:33 17:33 WBC (4.8-10.8) x10^3/uL RBC (4.70-6.10) 10^6/uL Hgb 8.9 L (14.0-18.0) g/dL Hct 26.0 L (42.0-52.0) % MCV (80.0-94.0) fL MCH (27.0-31.0) pg MCHC (32.0-36.0) g/dL RDW (12.0-15.0) % Plt Count (130-450) 10^3/uL MPV (7.4-11.4) fL Neut # (Auto) (1.5-6.6) 10^3/uL Lymph # (Auto) (1.5-3.5) 10^3/uL Barber # (Auto) (0.0-1.0) 10^3/uL Eos # (Auto) (0.0-0.7) 10^3/uL Baso # (Auto) (0.0-0.1) 10^3/uL Absolute Nucleated RBC x10^3/uL Nucleated RBC % /100WBC Sodium (135-145) mmol/L Potassium (3.5-5.0) mmol/L Chloride (101-111) mmol/L Carbon Dioxide (21-32) mmol/L Anion Gap (6-13) BUN (6-20) mg/dL Creatinine (0.6-1.2) mg/dL Estimated GFR (MDRD) (>89) Glucose (70-100) mg/dL POC Whole Bld Glucose 111 H 113 H (70 - 100) mg/dL Calcium (8.5-10.3) mg/dL Magnesium (1.7-2.8) mg/dL Total Bilirubin (0.2-1.0) mg/dL Direct Bilirubin (0.1-0.5) mg/dL Indirect Bilirubin mg/dL Lactate Dehydrogenase (91-225) IU/L Blood Type Antibody Screen Crossmatch IS Only 01/15/19 01/15/19 Range/Units 10:57 10:57 WBC (4.8-10.8) x10^3/uL RBC (4.70-6.10) 10^6/uL Hgb (14.0-18.0) g/dL Hct (42.0-52.0) % MCV (80.0-94.0) fL MCH (27.0-31.0) pg MCHC (32.0-36.0) g/dL RDW (12.0-15.0) % Plt Count (130-450) 10^3/uL MPV (7.4-11.4) fL Neut # (Auto) (1.5-6.6) 10^3/uL Lymph # (Auto) (1.5-3.5) 10^3/uL Barber # (Auto) (0.0-1.0) 10^3/uL Eos # (Auto) (0.0-0.7) 10^3/uL Baso # (Auto) (0.0-0.1) 10^3/uL Absolute Nucleated RBC x10^3/uL Nucleated RBC % /100WBC Sodium (135-145) mmol/L Potassium (3.5-5.0) mmol/L Chloride (101-111) mmol/L Carbon Dioxide (21-32) mmol/L Anion Gap (6-13) BUN (6-20) mg/dL Creatinine (0.6-1.2) mg/dL Estimated GFR (MDRD) (>89) Glucose (70-100) mg/dL POC Whole Bld Glucose (70 - 100) mg/dL Calcium (8.5-10.3) mg/dL Magnesium (1.7-2.8) mg/dL Total Bilirubin (0.2-1.0) mg/dL Direct Bilirubin (0.1-0.5) mg/dL Indirect Bilirubin mg/dL Lactate Dehydrogenase (91-225) IU/L Blood Type Cancelled A POSITIVE Antibody Screen Cancelled NEGATIVE Crossmatch IS Only See Detail See Detail ABX Reporting Has patient been on IV antibiotics over the past 48 hours?: No Sepsis Event Note (H) - Evaluation Current Stage of Sepsis: Ruled out Assessment/Plan - Problem List (1) GI bleed Impression: 01/17 HGB drop again from 9.3 to 7.4. repeated CBC show HGB is 7.6 although colonoscopy and EGD did not reveals acute bleeding site hemolytic study, indirect bili and LDH is normal, Haptoglobin is pending, it seems pt did not have acute hemolytic event to cause HGB drop But EGD did reveals ibrahim's esophagus continue H&H tonight pt may need high level of care pt continue drop of HGB, and had another black stool on today morning. order blood transfusion of two units EGD and consult with GI surgeon H&H continue monitor hold Aspirin continue PPI (2) Anemia Impression: it appear from acute GI bleed blood transfusion as needed continue H&H followup EGD (3) Diabetes mellitus type 2, diet-controlled Impression: A1C is 5.6, it seems well controlled DM2 pt is NPO now for EGD, check blood glucose, continue hypoglycemia protocol (4) Essential hypertension Impression: pt's blood pressure is the low side, will hold pt's home BP meds now. vital monitor Qualifiers: GI bleed type/associated pathology: melena Qualified Code(s): K92.1 - Melena
[2019-01-17] MEDS: CARVEDILOL 12.5 MG TABLET PO SCH ×2 (17:02→21:26)
[2019-01-17 18:35] LABS: HGB - HEMOGLOBIN 7.5 g/dL (14.0-18.0)
[2019-01-17] MEDS ORDERED: NON FORMULARY MED (Carvedilol [Carvedilol] 25 MG) PO SCH (21:00)
[2019-01-18 00:07] LABS: HGB - HEMOGLOBIN 7.1 g/dL (14.0-18.0)
[2019-01-18] MEDS: SODIUM CHLORIDE FLUSH 0.9% 10 ML SYRINGE IVP SCH ×2 (03:29→09:11)
[2019-01-18 06:03] LABS: BASOPHILS % (AUTO) 0.6 %; EOSINOPHILS # (AUTO) 0.7 10^3/uL (0.0-0.7); EOSINOPHILS % (AUTO) 18.4 %; HGB - HEMOGLOBIN 7.1 g/dL (14.0-18.0); LYMPHOCYTES % (AUTO) 27.3 %; MEAN CORPUSCULAR HEMOGLOBIN 32.2 pg (27.0-31.0); MEAN CORPUSCULAR HGB CONC 34.6 g/dL (32.0-36.0); MONOCYTES # (AUTO) 0.2 10^3/uL (0.0-1.0); MONOCYTES % (AUTO) 6.8 %; NEUTROPHILS # (AUTO) 1.7 10^3/uL (1.5-6.6); NEUTROPHILS % (AUTO) 46.9 %; PLT - PLATELET COUNT 99 10^3/uL (130-450); RED BLOOD COUNT 2.21 10^6/uL (4.70-6.10); RED CELL DISTRIBUTION WIDTH 15.6 % (12.0-15.0); WHITE BLOOD COUNT 3.6 x10^3/uL (4.8-10.8)
[2019-01-18 06:15] LABS: CALCIUM 7.6 mg/dL (8.5-10.3); CREATININE 1.3 mg/dL (0.6-1.2); MAGNESIUM 1.5 mg/dL (1.7-2.8)
[2019-01-18] MEDS ORDERED: MAGNESIUM SULFATE 2 GRAM 2 GM/50 ML BAG IV ONE (08:00)
[2019-01-18 08:30] LABS: ABSOLUTE RETICS # AUTO 0.068 10^6/uL (0.020-0.110); MEAN RETIC VALUE 138.6; RED BLOOD COUNT 2.21 10^6/uL (4.70-6.10)
[2019-01-18 09:06] LABS: % IRON SATURATION 32 % (20-50); IRON 80 ug/dL (45-182); TOTAL IRON BINDING CAPACITY 249 ug/dL (250-450); TRANSFERRIN 178 mg/dL (180-329)
[2019-01-18] MEDS: POLYETHYLENE GLYCOL 3350 17 GM PACKET PO SCH (09:10)
[2019-01-18] MEDS: CARVEDILOL 12.5 MG TABLET PO SCH (09:11)
[2019-01-18] MEDS: SODIUM CHLORIDE FLUSH 0.9% 10 ML SYRINGE IVP PRN (09:11)
[2019-01-18] MEDS: PANTOPRAZOLE 40 MG VIAL IVP SCH (09:11)
[2019-01-18] MEDS ORDERED: SODIUM CHLORIDE 0.9% 0 ML IV ONE (12:04)
--- NOTE | 2019-01-18 15:14 | DISCHARGE SUMMARY ---
Discharge Summary Discharge Date: 01/18/19 Discharging Provider: DOWNING Primary Care Provider: Dr. Baez Condition at Discharge: Stable Discharge [facility] Name: [facility] - DIAGNOSES Admission Diagnoses: GI bleed acute blood loss anemia dizziness cognitive delay Chronic kidney disease Diabetes mellitus type 2-diet controlled Social isolation Discharge Diagnoses with Status of Each Condition: (1) GI bleed (2) Anemia (3) Diabetes mellitus type 2, diet-controlled (4) Essential hypertension (5) HLD (6) Gout (7) CKD stage III - HPI History of Present Illness: refer from Ms. romero's HPI on 01/15/19 as the following: Avinash Medrano is a 68-year old male with a past medical history of hypertension, hyperlipidemia, diabetes mellitus type 2- diet controlled, obesity, ROGELIO, colon polyps noted on December 2017 w/ Dr. Loomis per colonoscopy, nocturia, and cognitive delay. The patient states that he was partying at the [employer] and got back home last Sunday night. 2 days ago, he began to notice a raised itchy rash that developed on his lower legs. This morning he woke up at 0500 and had to suddenly run to the bathroom to move his bowels, which is not his normal routine. He states that just about the time he thought he was done, he had to go again and upon inspection he noted, "it was as black as that TV". A few weeks ago, he was put on a steroid taper for a gout flare up and had just finished that up, and denies any recent acute NSAID use other than his daily ASA. He states that in December 2017, Dr. Loomis performed a routine colonoscopy on him and removed at least 2 polyps, and later called back to say there was no cancer. He denied any cramping or pain during these loose stool episodes. He says that he has been mildly nauseated which started a few days ago. On my exam, he denied any new headaches, sore throat, cough, chest pain, vomiting, acute bleeding, insomnia, falls, syncope, or a dizziness. Labs show a very low H/H of 6.6/19.6, WBC count of 4.6, MCV 92.2, platelet count of 133, INR 1.2, sodium 136, potassium 5.3, BUN of 50, creatinine of 1.4, GFR 50, glucose 178, alk phos 39, and no other abnormalities. He has a baseline H/H of , so he will get 2 units of PRBCs, and then re-evaluate. A general surgery consult was made in the event he continues to trend down. - HOSPITAL COURSE Hospital Course: 1) GI bleed both EGD and colonoscopy did not find acute bleed site. but pt's HGB continue drop. Pt had once large black stool at hospital it seems pt has no hemolytic anemia, both indirect bili and LDH are unremarkable, Laptoglobin and peripheral smear are pending pt is transferred to [facility] level of care by GI and hospitalist (2) Anemia pt had 4 unit of blood transfusion. pt's HGB is 6.6, pt had two unit of blood transfused, then his HGB drop to 6.1 again, pt had another 2 unites of blood transfusion. (3) Diabetes mellitus type 2, diet-controlled A1C is 5.6, well controlled (4) Essential hypertension stable, continue home meds Coreg (5) HLD stable (6) Gout stable, continue home Allopurilol (7) CKD stage III stable and slight better - ALLERGIES Allergies/Adverse Reactions: Allergies Allergy/AdvReac Type Severity Reaction Status Date / Time No Known Drug Allergies Allergy Verified 01/15/19 10:29 - MEDICATIONS Home Medications: Ambulatory Orders Medication Instructions Recorded Confirmed Aspirin [Aspir-Low] 81 mg ORAL DAILY 10/19/15 01/15/19 Simvastatin 10 mg PO QPM 10/19/15 01/15/19 Allopurinol 100 mg PO DAILY 01/02/19 01/15/19 Carvedilol 25 mg PO BID 01/15/19 01/15/19 Lactobacillus Rhamnosus GG 1 cap PO DAILY 01/15/19 01/15/19 [Culturelle] - PHYSICAL EXAM AT DISCHARGE General Appearance: positive: No acute distress, Alert. negative: Lethargic Eyes Bilateral: positive: Normal inspection, PERRL, No lid inflammation, Conjunctivae nml ENT: positive: ENT inspection nml, Pharynx nml, No signs of dehydration. negative: Purulent nasal drainage, Pharyngeal erythema, Oral lesions Neck: positive: Nml inspection, Thyroid nml, No JVD, Trachea midline. negative: Thyromegaly, Lymphadenopathy (R), Lymphadenopathy (L), Stiff neck, Swelling/bruising, Tracheal deviation Respiratory: positive: Chest non-tender, No respiratory distress, Breath sounds nml. negative: Wheezes, Rales, Rhonchi Cardiovascular: positive: Regular rate & rhythm, No murmur, No gallop. negative: Irregularly irregular, Extrasystoles, Tachycardia, Bradycardia, JVD present, Systolic murmur, Diastolic murmur Peripheral Pulses: positive: 2+ Abdomen: positive: Non-tender, No organomegaly, Nml bowel sounds, No distention. negative: Tenderness, Guarding, Rebound Back: positive: Nml inspection. negative: CVA tenderness (R), CVA tenderness (L) Skin: positive: Color nml, No rash, Warm, Dry. negative: Cyanosis, Diaphoresis, Pallor Extremities: positive: Non-tender, Full ROM, Nml appearance. negative: Calf tenderness, Joint swelling, Gilbert's sign/cords Neurologic/Psychiatric: positive: Motor nml, Sensation nml, Mood/affect nml. negative: Weakness, Sensory loss, Facial droop, Slurred/abnml speech, Depressed mood/affect - LABS Result Diagrams: 01/18/19 12:00 01/18/19 05:30 - SEPSIS Current Stage of Sepsis: Ruled out - FOLLOW UP Follow Up: transferred to [facility] for high level of care - TIME SPENT Time Spent in Discharge (Minutes): 60
[2019-01-18 16:14] VITALS: BP 121/70
== END 2019-01-18 16:25 | disposition short-term general hospital (02) | DRG 811 ==
LOC: ED 10:24 → MS2 13:00 → UNDOADMOB 13:00 → INTOOBSV 13:39 → OBSVTOIN 13:39 → MS2 01-16 13:39 → OBSVTOIN 01-16 13:39 → INTOOBSV 01-16 13:39 → UNDOADMOB 01-16 13:39 → UNDODISIN 01-18 16:25
PROVIDERS: ADMIT Nurse Practitioner; ATTEND Nurse Practitioner
PROC: 0DB38ZX Excision of Lower Esophagus, Via Natural or Artificial Opening Endoscopic, Diagnostic (ICD-10-PCS; 2019-01-16)
PROC: 3E0G8GC Introduction of Other Therapeutic Substance into Upper GI, Via Natural or Artificial Opening Endoscopic (ICD-10-PCS; principal; 2019-01-16 15:30)
PROC: 0DJD8ZZ Inspection of Lower Intestinal Tract, Via Natural or Artificial Opening Endoscopic (ICD-10-PCS; 2019-01-17)
DX: D62 Acute posthemorrhagic anemia (principal); K26.4 Chronic or unspecified duodenal ulcer with hemorrhage; K92.2 Gastrointestinal hemorrhage, unspecified; K22.70 Barrett's esophagus without dysplasia; N18.9 Chronic kidney disease, unspecified; N17.9 Acute kidney failure, unspecified; R19.7 Diarrhea, unspecified; K44.9 Diaphragmatic hernia without obstruction or gangrene; I12.9 Hypertensive chronic kidney disease with stage 1 through stage 4 chronic kidney disease, or unspecified chronic kidney disease; E11.22 Type 2 diabetes mellitus with diabetic chronic kidney disease; N18.3 Chronic kidney disease, stage 3 (moderate); E11.65 Type 2 diabetes mellitus with hyperglycemia; E78.5 Hyperlipidemia, unspecified; E66.9 Obesity, unspecified; Z68.34 Body mass index [BMI] 34.0-34.9, adult; R35.1 Nocturia; G31.84 Mild cognitive impairment of uncertain or unknown etiology; J32.9 Chronic sinusitis, unspecified; M10.9 Gout, unspecified; K64.8 Other hemorrhoids; H54.7 Unspecified visual loss; H91.90 Unspecified hearing loss, unspecified ear; L29.8 Other pruritus; Z60.4 Social exclusion and rejection; Z86.010 Personal history of colon polyps; Z79.82 Long term (current) use of aspirin; Z77.22 Contact with and (suspected) exposure to environmental tobacco smoke (acute) (chronic)
CPT/HCPCS: 36415; 80048; 80053; 82247; 82248; 82607; 82728; 82977; 83036; 83540; 83615; 83690; 83735; 84100; 84466; 85014; 85018; 85025; 85044; 85610; 85730; 86850; 86900; 86901; 86920; 93005; 96361; 96365; 96375; 99284; A9270; G0378; J1200; J7040; J7120; P9016; 82272; 83010

== ENCOUNTER 2019-01-31 21:36 | Emergency (ER) | payer MEDICARE, BC ==
--- NOTE | 2019-01-31 22:15 | ED Physician Documentation ---
PD HPI UPPER EXT INJURY - Stated complaint Stated Complaint: SWELLING/DISORIENTED - Chief complaint Chief Complaint: Ext Problem - History obtained from History obtained from: Patient - History of Present Illness Location: Right, Forearm, Wrist Type of injury: Other (Patient denies any injury at home. He has been in the hospital up to a week ago and had had some blood draws and IVs on both arms. He is noticing some swelling of the right arm and some redness in the forearm and also on the dorsum of the wrist at the ulnar styloid area. He denies any discharge from the areas. He denies any pain in the armpit. The left arm is normal. He is noticing some edema in the lower part of the right leg without any redness. This is been for the last 2 to 3 days as well and that is the timeframe for the arm redness.). No: Fall, Twist Timing - onset: How many days ago (2-3) Timing - details: Gradual onset Worsened by: Palpating Associated symptoms: Swelling, Discolored (redness right ulnar styloid area and some to right proximal forearm. Not tender nor red in AC area itself.). No: Weakness, Numbness Contributing factors: No: Anticoagulated Recently seen: Emergency Dept, Admitted (He was admitted 2 weeks ago for GI bl eed and was in our hospital for 3 days with endoscopy showing likely duodenal source but it was hard to access by scope. He was transferred to [facility] for camera endoscopy to look for other causes. The patient and sister state the duodenum was the apparent source of the bleeding and he was rescoped and apparently had some intervention site. He had been on a baby aspirin. He had been on some steroid for some arm redness a month before that and treated with steroids. He has not had any further signs of GI bleeding. He had noticed some swelling and redness again in the right forearm and wrist and is also noticing some swelling without redness in the right lower leg. These have been in the last 2 to 3 days after discharge from the hospital.) Review of Systems Constitutional: denies: Fever, Chills, Myalgias Nose: denies: Rhinorrhea / runny nose, Congestion Throat: denies: Sore throat Cardiac: denies: Chest pain / pressure Respiratory: denies: Dyspnea, Cough GI: denies: Abdominal Pain, Vomiting, Diarrhea, Bloody / black stool Musculoskeletal: denies: Back pain Neurologic: reports: Generalized weakness PD PAST MEDICAL HISTORY - Past Medical History Past Medical History: Yes Cardiovascular: Hypertension, High cholesterol Respiratory: None Neuro: None Endocrine/Autoimmune: Type 2 diabetes GI: None OUTREACH DIRECTOR: None : Renal insuffiency, Other HEENT: None Psych: None Musculoskeletal: None Derm: None - Past Surgical History Past Surgical History: No General: Colonoscopy HEENT: Other - Present Medications Home Medications: Ambulatory Orders Medication Instructions Recorded Confirmed Aspirin [Aspir-Low] 81 mg ORAL DAILY 10/19/15 01/15/19 Simvastatin 10 mg PO QPM 10/19/15 01/15/19 Allopurinol 100 mg PO DAILY 01/02/19 01/15/19 Carvedilol 25 mg PO BID 01/15/19 01/15/19 Lactobacillus Rhamnosus GG 1 cap PO DAILY 01/15/19 01/15/19 [Culturelle] Cephalexin [Keflex] 500 mg PO TID #21 capsule 02/01/19 Magnesium Oxide [Mag Ox] 400 mg PO DAILY #10 tablet 02/01/19 dexAMETHasone [Decadron] 4 mg PO DAILY #5 tablet 02/01/19 - Allergies Allergies/Adverse Reactions: Allergies Allergy/AdvReac Type Severity Reaction Status Date / Time No Known Drug Allergies Allergy Verified 01/31/19 21:48 - Social History Does the pt smoke?: No Smoking Status: Never smoker Does the pt drink ETOH?: No Does the pt have substance abuse?: No - Immunizations Immunizations are current?: Yes - POLST Patient has POLST: No POLST Status: Full Code PD ED PE NORMAL - Vitals Vital signs reviewed: Yes - General General: Alert and oriented X 3, No acute distress, Well developed/nourished - HEENT HEENT: Ears normal, Pharynx benign - Neck Neck: Supple, no meningeal sign, No adenopathy - Cardiac Cardiac: RRR, No murmur - Respiratory Respiratory: Clear bilaterally - Abdomen Abdomen: Soft, Non tender - Derm Derm: Normal color, Warm and dry - Extremities Extremities: No calf tenderness / cord, Other (Right lower extremity below the knee shows some mild edema without any redness nor tenderness. There is no calf tenderness per se. The left leg does not have any swelling.) - Neuro Neuro: Alert and oriented X 3, No motor deficit, No sensory deficit, Normal speech Results - Vitals Vitals: Vital Signs - 24 hr 01/31/19 01/31/19 01/31/19 21:46 21:54 23:38 Temperature 37.4 C Heart Rate 87 94 Respiratory 18 14 20 Rate Blood Pressure 139/61 H 140/80 H O2 Saturation 99 98 02/01/19 00:23 Temperature Heart Rate 87 Respiratory 18 Rate Blood Pressure 131/77 H O2 Saturation 97 Oxygen O2 Source Room air - Labs Labs: Laboratory Tests 01/31/19 01/31/19 01/31/19 22:54 22:54 22:54 WBC 7.7 RBC 2.55 L Hgb 8.4 L Hct 24.0 L MCV 94.2 H MCH 32.9 H MCHC 34.9 RDW 16.1 H Plt Count 154 MPV 8.2 Neut # (Auto) 6.5 Lymph # (Auto) 0.4 L [place] # (Auto) 0.8 Eos # (Auto) 0.0 Baso # (Auto) 0.0 Absolute Nucleated RBC 0.00 Nucleated RBC % 0.0 ESR > 140 H Sodium 136 Potassium 5.0 Chloride 101 Carbon Dioxide 23 Anion Gap 12.0 BUN 22 H Creatinine 1.5 H Estimated GFR (MDRD) 46 L Glucose 133 H Calcium 8.1 L Magnesium 1.0 L* Total Bilirubin 1.1 H AST 12 ALT 13 Alkaline Phosphatase 44 Total Protein 6.2 L Albumin 2.9 L Globulin 3.3 Albumin/Globulin Ratio 0.9 L Lipase 30 - Rads (name of study) duplex right arm and leg Radiology: Prelim report reviewed (no DVTs), See rad report PD MEDICAL DECISION MAKING - ED course Complexity details: reviewed results, re-evaluated patient, considered differential (I had concern for DVT both of the arm related to recent IV and blood draws with hospitalization. Also concern for DVT in the right leg given recent hospitalization and less mobility. Ultrasound was done for both of these and did not show any blood clots. The leg swelling I presume is just dependent or sedentary edema. He is encouraged to get up and walk around a little bit more and could use an Tomy wrap on the leg and have it elevated. The right forearm redness as well as swelling I think is a different process and at least on the dorsum of the wrist would be suggestive of inflammatory arthritis or gout. It does not look infectious per se. The patient and his sister are concerned about use of steroids because of his recent GI bleed. That is reasonable and I felt a dose or 2 or even a few days would be reasonable. He should avoid NSAIDs and is not on any aspirin anymore. As such as think he would be lower risk for recurrent GI bleed. I would consider some cellulitis in the forearm given recent phlebotomy and IVs as well. There may be some superficial phlebitis as a cause but still cellulitis would be consideration and so we will use some antibiotics as well.), d/w patient Departure - Departure Disposition: Home, Self Care Clinical Impression: Right leg swelling, Arm swelling, Skin redness or inflammation Condition: Stable Record reviewed to determine appropriate education?: Yes Instructions: ED Infec Skin Cellulitis, ED Leg Swelling Unilateral Follow-Up: Roberto Baez MD [Primary Care Provider] - Prescriptions: Cephalexin [Keflex] 500 mg PO TID #21 capsule dexAMETHasone [Decadron] 4 mg PO DAILY #5 tablet Magnesium Oxide [Mag Ox] 400 mg PO DAILY #10 tablet Comments: Your ultrasounds did not show any signs of clot in the arm nor the leg. I presume the leg swelling is just resulting from inadequate return flow. Elevate the leg periodically when rested. You could use an Tomy wrap on it. It does not sound like fluid overload and so I do not think you need a diuretic. The right arm swelling along with the redness in the skin may relate to inflammation in the joint such as gout. However given the recent hospitalizations with IVs and blood draws, I be concerned about potential inflammation in the veins and possible infection in the veins (phlebitis). We will treat this with some anti-inflammatory, avoiding NSAIDs so that does not irritate your stomach, as well as an antibiotic for the potential of infection. Recheck if not improving over the next 2 to 3 days. Your magnesium level was also low on your blood tests so add a magnesium supplement daily for the next week or so. Discharge Date/Time: 02/01/19 00:56
[2019-01-31 23:09] LABS: BASOPHILS % (AUTO) 0.1 %; EOSINOPHILS % (AUTO) 0.1 %; HGB - HEMOGLOBIN 8.4 g/dL (14.0-18.0); LYMPHOCYTES # (AUTO) 0.4 10^3/uL (1.5-3.5); LYMPHOCYTES % (AUTO) 5.4 %; MEAN CORPUSCULAR HEMOGLOBIN 32.9 pg (27.0-31.0); MEAN CORPUSCULAR HGB CONC 34.9 g/dL (32.0-36.0); MEAN CORPUSCULAR VOLUME 94.2 fL (80.0-94.0); MEAN PLATELET VOLUME 8.2 fL (7.4-11.4); MONOCYTES # (AUTO) 0.8 10^3/uL (0.0-1.0); MONOCYTES % (AUTO) 9.8 %; NEUTROPHILS # (AUTO) 6.5 10^3/uL (1.5-6.6); NEUTROPHILS % (AUTO) 84.6 %; PLT - PLATELET COUNT 154 10^3/uL (130-450); RED BLOOD COUNT 2.55 10^6/uL (4.70-6.10); RED CELL DISTRIBUTION WIDTH 16.1 % (12.0-15.0); WHITE BLOOD COUNT 7.7 x10^3/uL (4.8-10.8)
[2019-01-31 23:15] LABS: ALBUMIN 2.9 g/dL (3.2-5.5); ALBUMIN/GLOBULIN RATIO 0.9 (1.0-2.2); BILIRUBIN,TOTAL 1.1 mg/dL (0.2-1.0); CALCIUM 8.1 mg/dL (8.5-10.3); CREATININE 1.5 mg/dL (0.6-1.2); TOTAL PROTEIN 6.2 g/dL (6.7-8.2)
[2019-01-31] MEDS ORDERED: MAGNESIUM SULFATE 2 GRAM 2 GM/50 ML BAG IV ONE (23:16)
[2019-02-01] MEDS ORDERED: ceFAZolin 1 GM VIAL IVP STA (00:20)
[2019-02-01] MEDS ORDERED: DEXAMETHASONE 10 MG/ML VIAL IVP STA (00:20)
[2019-02-01 00:25] VITALS: BP 131/77
--- NOTE | 2019-02-01 00:37 | Ultrasound Report ---
Reason: right leg swelling; recently hospitalized Procedure Date: 01/31/2019 Accession Number: [id number] / [id number] Procedure: US - Duplex Ext Veins Right CPT Code: FULL RESULT: EXAM: RIGHT LOWER EXTREMITY VENOUS ULTRASOUND EXAM DATE: 01/31/2019 11:03 PM. CLINICAL HISTORY: Right leg swelling; recently hospitalized. COMPARISON: None. TECHNIQUE: Real-time sonographic vascular imaging was performed by the yard laborer through the lower extremity utilizing both color-flow and Doppler spectral analysis. Multiple order entry representative static images were saved for review. FINDINGS: Common Femoral Vein (CFV): Normal. CFV-GSV Junction: Normal. Profunda Femoral Vein (PFV): Normal. Femoral Vein (FV) Prox: Normal. Femoral Vein (FV) Mid: Normal. Femoral Vein (FV) Dist: Normal. Popliteal Vein: Normal. Posterior Tibial Veins: Normal. Peroneal Veins: Normal. Other: None. IMPRESSION: No evidence for deep venous thrombosis. RADIA
--- NOTE | 2019-02-01 00:39 | Ultrasound Report ---
Reason: right arm swelling; recent hospitalization with IV Procedure Date: 02/01/2019 Accession Number: [id number] / [id number] Procedure: US - Duplex Ext Veins Right CPT Code: FULL RESULT: EXAM: RIGHT UPPER EXTREMITY VENOUS ULTRASOUND EXAM DATE: 01/31/2019 11:28 PM. CLINICAL HISTORY: Right arm swelling; recent hospitalization with IV. COMPARISON: DUPLEX EXT VEINS RIGHT 01/31/2019 11:03 PM. TECHNIQUE: Real-time sonographic vascular imaging was performed by the rubber insulator through the upper extremity utilizing both color-flow and Doppler spectral analysis. Multiple sales representative jewelry static images were saved for review. FINDINGS: Internal Jugular Vein (IJV): Normal. Subclavian Vein (SCV): Normal. Axillary Vein : Normal. Cephalic Vein (superficial vein): Normal. Basilic Vein (superficial vein): Normal. Brachial Vein: Normal. Other: Subcutaneous edema. IMPRESSION: No evidence for deep vein thrombosis. RADIA
== END 2019-02-01 00:56 | disposition home or self-care (01) ==
LOC: ED 21:36
DX: M79.89 Other specified soft tissue disorders (principal); R60.0 Localized edema; E83.42 Hypomagnesemia; R53.1 Weakness; I10 Essential (primary) hypertension; E11.9 Type 2 diabetes mellitus without complications
CPT/HCPCS: 36415; 80053; 83690; 83735; 85025; 85651; 96365; 96375; 99283; 99284

== ENCOUNTER 2019-02-06 08:00 | Outpatient (CLI) | payer MEDICARE, BC ==
[2019-02-06 18:47] LABS: BASOPHILS % (AUTO) 0.1 %; EOSINOPHILS % (AUTO) 0.1 %; HGB - HEMOGLOBIN 9.1 g/dL (14.0-18.0); LYMPHOCYTES # (AUTO) 0.6 10^3/uL (1.5-3.5); MEAN CORPUSCULAR HGB CONC 33.7 g/dL (32.0-36.0); MEAN CORPUSCULAR VOLUME 94.9 fL (80.0-94.0); MEAN PLATELET VOLUME 8.8 fL (7.4-11.4); MONOCYTES # (AUTO) 0.5 10^3/uL (0.0-1.0); MONOCYTES % (AUTO) 7.3 %; NEUTROPHILS # (AUTO) 5.8 10^3/uL (1.5-6.6); NEUTROPHILS % (AUTO) 83.5 %; PLT - PLATELET COUNT 255 10^3/uL (130-450); RED BLOOD COUNT 2.85 10^6/uL (4.70-6.10)
[2019-02-06 19:00] LABS: % IRON SATURATION 24 % (20-50); BUN - BLOOD UREA NITROGEN 40 mg/dL (6-20); CALCIUM 8.8 mg/dL (8.5-10.3); CARBON DIOXIDE - CO2 23 mmol/L (21-32); CHLORIDE 102 mmol/L (101-111); CK- CREATINE KINASE 18 IU/L (22-269); CREATININE 1.3 mg/dL (0.6-1.2); GFR - MDRD 55 (>89); GLUCOSE 146 mg/dL (70-100); IRON 77 ug/dL (45-182); MAGNESIUM 1.5 mg/dL (1.7-2.8); SODIUM 134 mmol/L (135-145); TOTAL IRON BINDING CAPACITY 315 ug/dL (250-450); TRANSFERRIN 225 mg/dL (180-329); URIC ACID 5.1 mg/dL (2.6-7.2)
[2019-02-06 19:34] LABS: CRP - C-REACTIVE PROTEIN < 1.0 mg/dL (0-1.0)
== END 2019-02-06 08:01 | disposition home or self-care (01) ==
LOC: LAB.WCP 08:00
PROVIDERS: ATTEND Family Medicine
DX: N18.3 Chronic kidney disease, stage 3 (moderate) (principal); E83.42 Hypomagnesemia; D64.9 Anemia, unspecified; M10.9 Gout, unspecified; I10 Essential (primary) hypertension; K22.70 Barrett's esophagus without dysplasia; M60.9 Myositis, unspecified
CPT/HCPCS: 36415; 80048; 82550; 82728; 83540; 83735; 84466; 84550; 85025; 85651; 86140

== ENCOUNTER 2019-02-18 11:06 | Outpatient (CLI) | payer MEDICARE, BC ==
[2019-02-18 19:04] LABS: HGB - HEMOGLOBIN 8.9 g/dL (14.0-18.0); MEAN CORPUSCULAR HEMOGLOBIN 30.9 pg (27.0-31.0); MEAN CORPUSCULAR HGB CONC 30.4 g/dL (32.0-36.0); MEAN CORPUSCULAR VOLUME 101.7 fL (80.0-94.0); MEAN PLATELET VOLUME 10.7 fL (7.4-11.4); RED BLOOD COUNT 2.88 10^6/uL (4.70-6.10); RED CELL DISTRIBUTION WIDTH 15.3 % (12.0-15.0); WHITE BLOOD COUNT 7.9 x10^3/uL (4.8-10.8)
[2019-02-18 19:23] LABS: RHEUMATOID FACTOR NEGATIVE (Negative)
[2019-02-18 19:48] LABS: CRP - C-REACTIVE PROTEIN 19.9 mg/dL (0-1.0)
[2019-02-18 19:49] LABS: URIC ACID 5.9 mg/dL (2.6-7.2)
[2019-02-20 19:21] LABS: ANA SCREEN POSITIVE (NEGATIVE)
== END 2019-02-18 11:07 | disposition home or self-care (01) ==
LOC: LAB.WCP 11:06
PROVIDERS: ATTEND Family Medicine
DX: M79.641 Pain in right hand (principal)
CPT/HCPCS: 36415; 84550; 85027; 85651; 86038; 86140; 86200; 86430

== ENCOUNTER 2019-02-26 08:00 | Outpatient (CLI) | payer MEDICARE, BC ==
[2019-02-26 19:21] LABS: CALCIUM 8.9 mg/dL (8.5-10.3); CREATININE 1.1 mg/dL (0.6-1.2)
== END 2019-02-26 23:59 | disposition home or self-care (01) ==
LOC: LAB.WCP 08:00
PROVIDERS: ATTEND Family Medicine
DX: N18.3 Chronic kidney disease, stage 3 (moderate) (principal)
CPT/HCPCS: 36415; 80048

== ENCOUNTER 2019-03-13 11:19 | Outpatient (CLI) | payer MEDICARE, BC ==
[2019-03-13 18:43] LABS: CREATININE 1.2 mg/dL (0.6-1.2)
== END 2019-03-13 23:59 | disposition home or self-care (01) ==
LOC: LAB.WCP 11:19
PROVIDERS: ATTEND Family Medicine
DX: N18.3 Chronic kidney disease, stage 3 (moderate) (principal)
CPT/HCPCS: 36415; 80048

== ENCOUNTER 2019-05-07 08:00 | Outpatient (CLI) | payer MEDICARE, BC | END 2019-05-07 23:59 | disposition home or self-care (01) | LOC: LAB.WCP 08:00 | PROVIDERS: ATTEND Internal Medicine Rheumatology | DX: M10.9 Gout, unspecified (principal) | CPT/HCPCS: 36415; 84550 ==

== ENCOUNTER 2020-07-02 08:00 | Outpatient (CLI) | payer MEDICARE, BC ==
[2020-07-02 11:47] LABS: BASOPHILS % (AUTO) 0.5 %; EOSINOPHILS # (AUTO) 0.7 10^3/uL (0.0-0.7); EOSINOPHILS % (AUTO) 10.9 %; HGB - HEMOGLOBIN 12.2 g/dL (14.0-18.0); LYMPHOCYTES # (AUTO) 0.6 10^3/uL (1.5-3.5); LYMPHOCYTES % (AUTO) 10.2 %; MEAN CORPUSCULAR HEMOGLOBIN 32.9 pg (27.0-31.0); MEAN CORPUSCULAR HGB CONC 33.7 g/dL (32.0-36.0); MEAN CORPUSCULAR VOLUME 97.6 fL (80.0-94.0); MEAN PLATELET VOLUME 10.2 fL (7.4-11.4); MONOCYTES # (AUTO) 0.4 10^3/uL (0.0-1.0); MONOCYTES % (AUTO) 7.2 %; NEUTROPHILS # (AUTO) 4.3 10^3/uL (1.5-6.6); NEUTROPHILS % (AUTO) 70.9 %; PLT - PLATELET COUNT 165 10^3/uL (130-450); RED BLOOD COUNT 3.71 10^6/uL (4.70-6.10); RED CELL DISTRIBUTION WIDTH 12.6 % (12.0-15.0)
[2020-07-02 12:03] LABS: ALBUMIN 3.9 g/dL (3.2-5.5); ALBUMIN/GLOBULIN RATIO 1.3 (1.0-2.2); ALKALINE PHOSPHATASE 68 IU/L (42-121); ALT ALANINE AMINOTRANSFERASE 39 IU/L (10-60); AST ASPARTATE AMINOTRANSFERASE 27 IU/L (10-42); BILIRUBIN,TOTAL 0.6 mg/dL (0.2-1.0); BUN - BLOOD UREA NITROGEN 25 mg/dL (6-20); CALCIUM 8.6 mg/dL (8.5-10.3); CARBON DIOXIDE - CO2 28 mmol/L (21-32); CHLORIDE 100 mmol/L (101-111); CHOLESTEROL 206 mg/dL; CREATININE 1.5 mg/dL (0.6-1.2); GLUCOSE 180 mg/dL (70-100); HDL CHOLESTEROL 52 mg/dL; LDL CHOLESTEROL,CALCULATED 132 mg/dL; LDL/HDL RATIO 2.5 (<3.6); SODIUM 136 mmol/L (135-145); TOTAL PROTEIN 6.8 g/dL (6.7-8.2); URIC ACID 5.8 mg/dL (2.6-7.2); VLDL CHOLESTEROL 22 mg/dL
== END 2020-07-02 23:59 | disposition home or self-care (01) ==
LOC: LAB.WCP 08:00
PROVIDERS: ATTEND Family Medicine
DX: N28.9 Disorder of kidney and ureter, unspecified (principal); I12.9 Hypertensive chronic kidney disease with stage 1 through stage 4 chronic kidney disease, or unspecified chronic kidney disease; N18.30 Chronic kidney disease, stage 3 unspecified; M10.9 Gout, unspecified; E78.5 Hyperlipidemia, unspecified
CPT/HCPCS: 36415; 80053; 80061; 83721; 84443; 84550; 85025

== ENCOUNTER 2020-08-05 08:00 | Outpatient (CLI) | payer MEDICARE, BC ==
[2020-08-05 18:31] LABS: CREATININE 1.3 mg/dL (0.6-1.2)
== END 2020-08-05 23:59 | disposition home or self-care (01) ==
LOC: LAB.WCP 08:00
PROVIDERS: ATTEND Internal Medicine
DX: I12.9 Hypertensive chronic kidney disease with stage 1 through stage 4 chronic kidney disease, or unspecified chronic kidney disease (principal); E87.5 Hyperkalemia; N18.30 Chronic kidney disease, stage 3 unspecified
CPT/HCPCS: 36415; 80048

== ENCOUNTER 2021-01-06 08:00 | Outpatient (CLI) | payer MEDICARE, BC ==
[2021-01-06 19:19] LABS: ABSOLUTE RETICS # AUTO 0.055 10^6/uL (0.020-0.110); BASOPHILS % (AUTO) 0.4 %; EOSINOPHILS # (AUTO) 0.4 10^3/uL (0.0-0.7); EOSINOPHILS % (AUTO) 8.7 %; HGB - HEMOGLOBIN 12.1 g/dL (14.0-18.0); LYMPHOCYTES # (AUTO) 0.5 10^3/uL (1.5-3.5); LYMPHOCYTES % (AUTO) 10.3 %; MEAN CORPUSCULAR HGB CONC 33.6 g/dL (32.0-36.0); MEAN CORPUSCULAR VOLUME 98.1 fL (80.0-94.0); MONOCYTES # (AUTO) 0.4 10^3/uL (0.0-1.0); MONOCYTES % (AUTO) 6.9 %; NEUTROPHILS # (AUTO) 3.7 10^3/uL (1.5-6.6); NEUTROPHILS % (AUTO) 73.3 %; PLT - PLATELET COUNT 167 10^3/uL (130-450); RED BLOOD COUNT 3.67 10^6/uL (4.70-6.10); RED CELL DISTRIBUTION WIDTH 13.6 % (12.0-15.0); RETICULOCYTE COUNT % (AUTO) 1.51 % (0.5-2.3); WHITE BLOOD COUNT 5.1 x10^3/uL (4.8-10.8)
[2021-01-06 19:21] LABS: % IRON SATURATION 22 % (20-50); BUN - BLOOD UREA NITROGEN 32 mg/dL (6-20); CALCIUM 9.3 mg/dL (8.5-10.3); CARBON DIOXIDE - CO2 27 mmol/L (21-32); CHLORIDE 106 mmol/L (101-111); CHOL/HDL RATIO 3.8 (<5.0); CHOLESTEROL 169 mg/dL; CREATININE 1.4 mg/dL (0.6-1.2); GFR - MDRD 50 (>89); GLUCOSE 145 mg/dL (70-100); HDL CHOLESTEROL 45 mg/dL; IRON 98 ug/dL (45-182); LDL CHOLESTEROL,CALCULATED 106 mg/dL; LDL/HDL RATIO 2.4 (<3.6); POTASSIUM 5.1 mmol/L (3.5-5.0); SODIUM 141 mmol/L (135-145); TOTAL IRON BINDING CAPACITY 448 ug/dL (250-450); TRANSFERRIN 320 mg/dL (180-329); TRIGLYCERIDES 90 mg/dL; URIC ACID 5.2 mg/dL (2.6-7.2); VLDL CHOLESTEROL 18 mg/dL
[2021-01-06 19:22] LABS: CREATININE,URINE 147.9 mg/dL; MICROALBUM/CREATININE RATIO,UR 21.6 ug/mg (<30.0); MICROALBUMIN,URINE 3.2 mg/dL (0-300.0)
[2021-01-06 19:39] LABS: FERRITIN 24.7 ng/mL (23.9-336.2)
[2021-01-06 20:33] LABS: ESTIMATED AVERAGE GLUCOSE 146 mg/dL (70-100); HEMOGLOBIN A1c% 6.7 % (4.27-6.07)
== END 2021-01-06 23:59 | disposition home or self-care (01) ==
LOC: LAB.WCP 08:00
PROVIDERS: ATTEND Internal Medicine
DX: I12.9 Hypertensive chronic kidney disease with stage 1 through stage 4 chronic kidney disease, or unspecified chronic kidney disease (principal); N18.31 Chronic kidney disease, stage 3a; D64.9 Anemia, unspecified; Z12.5 Encounter for screening for malignant neoplasm of prostate; M10.39 Gout due to renal impairment, multiple sites; R73.01 Impaired fasting glucose
CPT/HCPCS: 36415; 80048; 80061; 82043; 82570; 82607; 82728; 83036; 83540; 84466; 84550; 85025; 85045; G0103; 83721; 84153

== ENCOUNTER 2021-02-03 12:45 | Outpatient (CLI) | payer MEDICARE, BC | END 2021-02-03 12:46 | disposition home or self-care (01) | LOC: NS 12:45 | PROVIDERS: ATTEND Internal Medicine | DX: Z71.3 Dietary counseling and surveillance (principal); E11.29 Type 2 diabetes mellitus with other diabetic kidney complication | CPT/HCPCS: 97802 ==

== ENCOUNTER 2021-03-10 13:06 | Outpatient (CLI) | payer MEDICARE, BC | END 2021-03-10 13:07 | disposition home or self-care (01) | LOC: NS 13:06 | PROVIDERS: ATTEND Internal Medicine | DX: Z71.3 Dietary counseling and surveillance (principal); E11.29 Type 2 diabetes mellitus with other diabetic kidney complication | CPT/HCPCS: 97803 ==

== ENCOUNTER 2021-04-11 19:36 | Outpatient (CLI) | payer MEDICARE, BC | END 2021-04-11 19:37 | disposition critical access hospital (66) | LOC: EMS 19:36 | DX: R56.9 Unspecified convulsions (principal) | CPT/HCPCS: A0425; A0427 ==

== ENCOUNTER 2021-04-11 19:51 | Observation (INO) | payer MEDICARE, BC ==
[2021-04-11] MEDS ORDERED: SODIUM CHLORIDE 0.9% 1,000 ML IV STA (20:01)
[2021-04-11 20:16] LABS: BASOPHILS % (AUTO) 0.6 %; EOSINOPHILS # (AUTO) 0.6 10^3/uL (0.0-0.7); EOSINOPHILS % (AUTO) 12.3 %; HGB - HEMOGLOBIN 11.3 g/dL (14.0-18.0); LYMPHOCYTES % (AUTO) 20.1 %; MEAN CORPUSCULAR HEMOGLOBIN 33.9 pg (27.0-31.0); MEAN CORPUSCULAR HGB CONC 34.2 g/dL (32.0-36.0); MEAN CORPUSCULAR VOLUME 99.1 fL (80.0-94.0); MEAN PLATELET VOLUME 9.9 fL (7.4-11.4); MONOCYTES # (AUTO) 0.4 10^3/uL (0.0-1.0); NEUTROPHILS # (AUTO) 2.9 10^3/uL (1.5-6.6); NEUTROPHILS % (AUTO) 58.6 %; PLT - PLATELET COUNT 136 10^3/uL (130-450); RED BLOOD COUNT 3.33 10^6/uL (4.70-6.10); RED CELL DISTRIBUTION WIDTH 12.8 % (12.0-15.0); WHITE BLOOD COUNT 4.9 x10^3/uL (4.8-10.8)
[2021-04-11 20:31] LABS: ACETAMINOPHEN < 10 ug/mL (10-30); ALBUMIN 3.9 g/dL (3.2-5.5); ALBUMIN/GLOBULIN RATIO 1.7 (1.0-2.2); ALKALINE PHOSPHATASE 69 IU/L (42-121); ALT ALANINE AMINOTRANSFERASE 19 IU/L (10-60); AST ASPARTATE AMINOTRANSFERASE 18 IU/L (10-42); BILIRUBIN,TOTAL 0.5 mg/dL (0.2-1.0); BUN - BLOOD UREA NITROGEN 33 mg/dL (6-20); CALCIUM 8.2 mg/dL (8.5-10.3); CARBON DIOXIDE - CO2 24 mmol/L (21-32); CHLORIDE 98 mmol/L (101-111); CREATININE 1.6 mg/dL (0.6-1.2); ETOH - ETHANOL < 5.0 mg/dL; GFR - MDRD 43 (>89); GLUCOSE 187 mg/dL (70-100); LIPASE 36 U/L (22-51); POTASSIUM 4.2 mmol/L (3.5-5.0); SALICYLATE < 6.0 mg/dL; SODIUM 135 mmol/L (135-145); TOTAL PROTEIN 6.2 g/dL (6.7-8.2)
--- NOTE | 2021-04-11 20:58 | ED Physician Documentation ---
PD HPI SEIZURE - Stated complaint Stated Complaint: SZ/ HEAD INJ - Chief complaint Chief Complaint: Neuro - History obtained from History obtained from: EMS - History of Present Illness Timing - onset: Today Witnessed: Witnessed Number of seizures: Unobtainable - Additional information Additional information: Patient is a 70-year-old male brought in by EMS for a witnessed seizure today. He was at the [employer] in the checkout line when apparently he collapsed to the ground and began to seize. Patient was postictal with EMS, attempting to pull off medical equipment, therefore he was placed in soft restraints and given 5 of Versed. He was also hypoxic with EMS after the seizure, therefore they gave supplemental oxygen through an NPA. Patient continues to be postictal upon arrival here. No medical history is known at this time. Review of Systems Unable to obtain: Confused PD PAST MEDICAL HISTORY - Past Medical History Cardiovascular: Hypertension, High cholesterol Respiratory: None Neuro: None Endocrine/Autoimmune: Type 2 diabetes GI: None [employer]ISTS: None : Renal insuffiency, Other HEENT: None Psych: None Musculoskeletal: None Derm: None - Past Surgical History Past Surgical History: No General: Colonoscopy HEENT: Other - Present Medications Home Medications: Ambulatory Orders Medication Instructions Recorded Confirmed Aspirin [Aspir-Low] 81 mg ORAL DAILY 10/19/15 01/15/19 Simvastatin 10 mg PO QPM 10/19/15 01/15/19 allopurinoL [Allopurinol] 100 mg PO DAILY 01/02/19 01/15/19 Lactobacillus Rhamnosus GG 1 cap PO DAILY 01/15/19 01/15/19 [Culturelle] carvediloL [Carvedilol] 25 mg PO BID 01/15/19 01/15/19 Magnesium Oxide [Mag Ox] 400 mg PO DAILY #10 tablet 02/01/19 cephALEXin [Keflex] 500 mg PO TID #21 capsule 02/01/19 dexAMETHasone [Decadron] 4 mg PO DAILY #5 tablet 02/01/19 - Allergies Allergies/Adverse Reactions: Allergies Allergy/AdvReac Type Severity Reaction Status Date / Time No Known Drug Allergies Allergy Verified 01/31/19 21:48 - Social History Does the pt smoke?: No Smoking Status: Never smoker Does the pt drink ETOH?: No Does the pt have substance abuse?: No - Immunizations Immunizations are current?: Yes - POLST Patient has POLST: No POLST Status: Full Code PD ED PE NORMAL - Vitals Vital signs reviewed: Yes - General General: No acute distress, Other (Drowsy, confused, disoriented) - HEENT HEENT: Atraumatic, PERRL, EOMI, Moist mucous membranes, Pharynx benign - Neck Neck: Supple, no meningeal sign, Other (Cervical collar in place. Does not appear to have any tenderness on palpation) - Cardiac Cardiac: RRR - Respiratory Respiratory: No respiratory distress, Clear bilaterally - Abdomen Abdomen: Soft, Non tender, Non distended - Back Back: No spinal TTP (No step-off or deformity. No tenderness to palpation or percussion) - Derm Derm: Warm and dry - Extremities Extremities: No edema, No calf tenderness / cord - Neuro Neuro: Other (Drowsy, confused, nonverbal) Results - Vitals Vitals: Vital Signs - 24 hr 04/11/21 04/11/21 04/11/21 19:52 19:59 20:59 Temperature 36.6 C 36.6 C Heart Rate 113 H 112 H 104 H Respiratory 22 20 22 Rate Blood Pressure 94/68 116/72 136/71 H O2 Saturation 99 100 100 Oxygen O2 Source Non-rebreather mask - EKG (time done) 2013 Rate: Rate (enter#) (112) Rhythm: Sinus tachycardia [place]: Normal Intervals: Normal SD QRS: Normal Ischemia: Non specific changes, Other (early R wave transition.) - Labs Labs: Laboratory Tests 04/11/21 04/11/21 04/11/21 20:12 20:12 20:12 WBC 4.9 RBC 3.33 L Hgb 11.3 L Hct 33.0 L MCV 99.1 H MCH 33.9 H MCHC 34.2 RDW 12.8 Plt Count 136 MPV 9.9 Neut # (Auto) 2.9 Lymph # (Auto) 1.0 L [place] # (Auto) 0.4 Eos # (Auto) 0.6 Baso # (Auto) 0.0 Absolute Nucleated RBC 0.00 Nucleated RBC % 0.0 Sodium 135 Potassium 4.2 Chloride 98 L Carbon Dioxide 24 Anion Gap 13.0 BUN 33 H Creatinine 1.6 H Estimated GFR (MDRD) 43 L Glucose 187 H Calcium 8.2 L Total Bilirubin 0.5 AST 18 ALT 19 Alkaline Phosphatase 69 Total Protein 6.2 L Albumin 3.9 Globulin 2.3 Albumin/Globulin Ratio 1.7 Lipase 36 TSH 8.93 H Salicylates < 6.0 Acetaminophen < 10 L Ethyl Alcohol < 5.0 - Rads (name of study) Head CT Radiology: Final report received, EMP read contemporaneously, See rad report (Chronic microvascular ischemic disease. no acute abnormality) Cervical spine CT Radiology: Final report received, EMP read contemporaneously, See rad report (No acute osseous abnormality. ) PD MEDICAL DECISION MAKING - ED course Complexity details: reviewed old records, reviewed results, re-evaluated patient, considered differential, d/w patient ED course: Patient's mental status gradually improved in the emergency department. Patient's medical history was reviewed in [facility]. Patient confirms he does not have any history of seizures. This may have been a primary seizure tonight or it could have been a post head injury seizure that started after syncope. Given a gram of Keppra. We will place the patient in observation tonight for an MRI in the morning. Patient states he does not have any pain currently. No headache. No neck or back pain. The cervical collar was removed when his mental status returned to normal. The restraints were also removed at that time. Discussed the case with Dr. Uribe, hospitalist who accepts This document was made in part using voice recognition software. While efforts are made to proofread this document, sound alike and grammatical errors may occur. Departure - Departure Disposition: ED Place in Observation Clinical Impression: Seizure, Diabetes mellitus type 2, diet-controlled Condition: Stable
--- NOTE | 2021-04-11 20:59 | CT Report ---
PROCEDURE: HEAD WO INDICATIONS: seizure, head injury TECHNIQUE: Noncontrast 4.5 mm thick angled axial sections acquired from the foramen magnum to the vertex. For r adiation dose reduction, the following was used: automated exposure control, adjustment of mA and/or kV according to patient size. COMPARISON: None. FINDINGS: Image quality: Excellent. CSF spaces: Basal cisterns are patent. No extra-axial fluid collections. Ventricles are normal in size and shape. Brain: No midline shift. No intracranial masses or hemorrhage. Ventricular hypodensity most consist ent with chronic microvascular ischemic disease. No large area of hypodensity in a vascular distribut ion to suggest infarction. Skull and face: Calvarium and visualized facial bones are intact, without suspicious lesions. Sinuses: Visualized sinuses and mastoids are clear. Tube in the right naris. IMPRESSION: No acute intracranial abnormality. Chronic microvascular ischemic disease. Reviewed by: Tez Stafford MD on 04/11/2021 8:58 PM PDT Approved by: Tez Stafford MD on 04/11/2021 8:58 PM PDT Station ID: [id number]
--- NOTE | 2021-04-11 21:01 | CT Report ---
PROCEDURE: CERVICAL SPINE WO INDICATIONS: seizure, head injury TECHNIQUE: Noncontrast 3 mm thick sections acquired from the skull base to the T4 level. Sagittal and coronal r eformats were then constructed. For radiation dose reduction, the following was used: automated exp osure control, adjustment of mA and/or kV according to patient size. COMPARISON: Same day noncontrast head CT. FINDINGS: Image quality: Excellent. Bones: No fractures or dislocations. Moderate degenerative change in the cervical spine. Visualized superior ribs are intact. Soft tissues: Prevertebral soft tissues are normal in thickness. No paravertebral hematomas. No ap ical pneumothoraces. Nasal trumpet. Mild dependent airspace opacity at the upper lobes. IMPRESSION: No acute osseous abnormality. Reviewed by: Tez Stafford MD on 04/11/2021 9:00 PM PDT Approved by: Tez Stafford MD on 04/11/2021 9:00 PM PDT Station ID: [id number]
[2021-04-11] MEDS ORDERED: levETIRAcetam INJ 1,000 MG in SODIUM CHLORIDE 0.9% 100ML 100 ML IV STA (21:10)
[2021-04-11] MEDS ORDERED: ONDANSETRON 4 MG/2 ML VIAL IVP PRN (21:18)
[2021-04-11] MEDS ORDERED: oxyCODONE 5 MG TABLET PO PRN (21:18)
[2021-04-11] MEDS ORDERED: ONDANSETRON ODT 4 MG TABLET TL PRN (21:18)
[2021-04-11] MEDS ORDERED: SODIUM CHLORIDE FLUSH 0.9% 10 ML SYRINGE IVP PRN (21:18)
[2021-04-11] MEDS ORDERED: ACETAMINOPHEN 325 MG TABLET PO PRN (21:18)
--- NOTE | 2021-04-11 21:33 | HISTORY & PHYSICAL EXAMINATION ---
Chief Complaint - Chief Complaint Chief Complaint: witnessed seizure in store History of Present Illness - Admitted From Admitted From:: [facility] via EMS - History Obtained From Records Reviewed: Shoop History obtained from: Dr. Singh Exam Limitations: post ictal - History of Present Illness HPI Comment/Other: This is a 70-year-old white male who lives on his own in spite of cognitive deficits. He still lives in his own home, drives, pays his own bills but is looked in on by his sister on a regular basis. He has several other [place] He used to live with his father but his father 4 years ago of colon cancer. He does not have a history of seizure disorder. He states there is been no change in his status. No change in appetite, activities. He is only been taking Metformin as a new medicine recently. Appetite has been the same and p.o. intake is been about the same. He denies fever, chills. Sore throat. No new vitamins. Does not have any recreational substance abuse. Does not abuse alcohol. He was at the [employer] today buying some things when he suddenly fell on the ground while standing in line to pay. Had a witnessed grand mal seizure. EMS was called. He was put in a c-collar, backboard, and brought to the emergency room. He is postictal, still lethargic and slightly confused. He did strike his head on a concrete floor. EMS states he was combative on the scene, he was given 5 mg of Versed and a 30 Belgian ET tube in the right nares for snoring respiration. Bilateral soft restraints. His initial temperature was 36.6. Heart rate 113. Blood pressure 94/68. Respirations 22 and he was 99% on a nonrebreather mask. For the 2 hours has been in the ER, he is gradually regaining consciousness. Initial lab work shows him to have a slightly elevated creatinine of 1.6. Baseline can be down as low as 1.0 form. He is a diabetic and random glucose is 187. Potassium is normal. He has mild chronic anemia that is stable. White cell count is normal. TSH is elevated at 8.93. Urinalysis has been ordered but not obtained. Initial toxicology screen for salicylates, acetaminophen, and ethyl alcohol are all negative. Head CT shows no acute intracranial abnormality. Chronic microvascular disease. C-spine CT has no acute osseous abnormality. And C-spine collar was removed. He is now alert, oriented, cooperative. History - Past Medical History Cardiovascular: reports: Hypertension, High cholesterol Respiratory: reports: COPD Neuro: reports: Other (cognitive deficit since childhood) Endocrine/Autoimmune: reports: Type 2 diabetes GI: reports: GI bleed (duodenal bleed p ASA, steroids for gout 2019. From here sent to and cautery?), Colon polyps GANG TAILER: reports: None : reports: Benign prostate hypertrophy, Renal insuffiency, Nocturia, Other (ROGELIO / CKD III with GI bleed and gout) HEENT: reports: None Psych: reports: None Musculoskeletal: reports: Osteoarthritis, Gout Derm: reports: None MRSA Hx?: No - Past Surgical History General: reports: Colonoscopy (2007 and 2018), EGD (2019 for GI bleed, also at as well) HEENT: reports: Other - Family & Social History Family History: Mother: , Alcoholism, Cancer, Father: , Cancer, Sister: Alive and Well Family History Comment/Other: Mom had depression, arthritis, anxiety, alcohol abuse and in her 70s. Dad in his 80s in 2017 with chronic kidney disease, colon cancer, osteoarthritis, anemia, skin cancer. Several siblings. Family history is positive for breast cancer in one of his sisters. No children. 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 He has lived with his father for all of his life up until 4 years ago when his father . His nearest sister lives in [place], 2 other sisters off [address]. He enjoys bowling and watching sports events. He denies the use of illicit drugs, tobacco use, or alcoholism. He has been a victim of second hand smoke up until his father . He wishes to be a FULL code, sisters agree. Cognitive delay since childhood. - Substance History Use: Uses substance without health or social issues: NONE Abuse: Recurrent use of substance despite neg consequences: NONE Dependence: Experiences withdrawal or developed tolerances: NONE - POLST Patient has POLST: No POLST Status: Full Code Meds/Allgy - Home Medications Home Medications: Ambulatory Orders Medication Instructions Recorded Confirmed Aspirin [Aspir-Low] 81 mg ORAL DAILY 10/19/15 01/15/19 Simvastatin 10 mg PO QPM 10/19/15 01/15/19 allopurinoL [Allopurinol] 100 mg PO DAILY 01/02/19 01/15/19 Lactobacillus Rhamnosus GG 1 cap PO DAILY 01/15/19 01/15/19 [Culturelle] carvediloL [Carvedilol] 25 mg PO BID 01/15/19 01/15/19 Magnesium Oxide [Mag Ox] 400 mg PO DAILY #10 tablet 02/01/19 cephALEXin [Keflex] 500 mg PO TID #21 capsule 02/01/19 dexAMETHasone [Decadron] 4 mg PO DAILY #5 tablet 02/01/19 - Allergies Allergies/Adverse Reactions: Allergies Allergy/AdvReac Type Severity Reaction Status Date / Time No Known Drug Allergies Allergy Verified 01/31/19 21:48 Review of Systems - Constitutional Constitutional: denies: Fatigue, Fever, Chills, Malaise, Weakness, Poor appetite, Diaphoresis, Night sweats - Eyes Eyes: reports: Vision loss. denies: Pain, Irritation, Amaurosis, Blurred vision - Ears, Nose & Throat Ears, Nose & Throat: denies: Hearing loss, Hearing aids, Tinnitus, Vertigo, Postnasal drainage, Sore throat, Hoarseness - Cardiovascular Cariovascular: denies: Irregular heart rate, Palpitations, Chest pain, Edema, Syncope - Respiratory Respiratory: reports: Cough (mild and infrequent), Snoring, SOB with exertion (chronic and unchanged, "out of shape", sedentary). denies: Sputum production, Wheezing - Gastrointestinal Gastrointestinal: reports: Change in bowel habits. denies: Abdominal pain, Abdominal distention, Constipation, Diarrhea (but he does have new loose stool with metformin) - Genitourinary Genitourinary: reports: Urgency, Nocturia. denies: Dysuria, Frequency - Musculoskeletal Musculoskeletal: reports: Muscle pain (right leg today after fall), Back pain (after the fall), Gout (in the past) - Integumentary Integumentary: denies: Rash, Pruritis, Lesions - Neurological Neurological: reports: Headache (head hurts where he bumped it), Memory problems (can't remember the seizure at all, doesn't remember the trip in EMS to here), Pre-existing deficit (cognitive delay). denies: General weakness, Focal weakness - Psychiatric Psychiatric: denies: Depression, Anxiety, Suicidal, Hallucinations - Endocrine Endocrine: reports: Polyuria, Intolerance to cold. denies: Polydypsia, Polyphagia - Hematologic/Lymphatic Hematologic/Lymphatic: reports: Anemia. denies: Bruising, Petechiae, Blood clots, Lymphadenopathy Prior Level of Functionality: No durable medical equipment use. Still drives a car. Pays his own bills. Does his own housekeeping and cooking. Exam - Vital Signs Reviewed Vital Signs: Yes Vital Signs: Vital Signs x48h Temp Pulse Resp BP Pulse Ox 04/11/21 20:59 104 H 22 136/71 H 100 04/11/21 19:59 36.6 C 112 H 20 116/72 100 04/11/21 19:52 36.6 C 113 H 22 94/68 99 - Physical Exam General Appearance: positive: No acute distress, Alert, Other (Pleasant, short, stocky severely overweight gentleman with male pattern baldness who knows where he is, cannot remember anything of how he got here, and is surprised to hear he had a seizure) Eyes Bilateral: positive: PERRL, EOMI ENT: positive: Pharynx nml, No signs of dehydration, Other (Back of his skull has a large red bump that fits in the palm of my hand from where he hit his head.) Neck: negative: No JVD, Stiff neck Respiratory: positive: Other (Mild respiratory distress. The effort of sitting up in the ER gurney, sitting to stand, and then [facility] makes him huffy puffy). negative: Wheezes, Rales, Rhonchi Cardiovascular: positive: Regular rate & rhythm, No murmur, No gallop Peripheral Pulses: positive: 1+ Abdomen: positive: Non-tender, No organomegaly, Nml bowel sounds, No distention, Other (Very large obese abdominal pannus. Underneath the pannus is mild Rachel) Skin: positive: Other (Multiple seborrheic keratoses of the chest and back. Severely long toenails that are now curving over the front of his toes. Abrasions and excoriations of the shins. Dirt between his toes and on the soles of his feet.) Extremities: positive: Pedal edema (Mild and trace around ankles), Other (It hurts to move his right knee and his right hip. He winces and says that was not there earlier today) Neurologic/Psychiatric: positive: Oriented x3, CN's nml (2-12), Motor nml (No focal deficits, but shuffling gait to get into the bed. No tremors. No cogwheel rigidity.) Conclusion/Plan - Problem List (1) Seizure Conclusion/Plan: New onset. Differential diagnosis would include brain lesion, electrolyte disturbance,'s drug side effect. Or, less likely, new onset seizure disorder. At his age I do not think that would be the case. Initial laboratory evaluation shows mild electrolyte disturbance with elevated creatinine. Random glucose elevation. But not enough to cause the seizure. Urine tox screen is negative. Plan: Observation status Load with Keppra MRI of the head tomorrow morning (2) Diabetes mellitus type 2, diet-controlled Conclusion/Plan: New med of metformin. Metformin can cause diarrhea and lactic acidosis but he denies any problems. Plan: Check A1c Sliding scale low dose parameters if indicated (3) BPH associated with nocturia Conclusion/Plan: This was a problem in the past. Patient is not on Flomax. Mild rising creatinine. In the past renal ultrasound did not show hydro-nephrosis. Plan: Recheck creatinine in the morning after 1 to 2 L hydration (4) Essential hypertension Conclusion/Plan: Blood pressure is low. When he came into the emergency room he was 94/68. These been in the ER and he is more awake and alert, blood pressure is 136/71. Plan: He is on carvedilol 25 twice daily. I do not want rebound tachycardia and will resume his carvedilol. Holding parameters written for. (5) Acute worsening of stage 3 chronic kidney disease Conclusion/Plan: hydrate. Could be from BPH or metformin. Check BMP in am. (6) Chronic anemia Conclusion/Plan: in the past he had a GI bleed. No complaints on ROS of current blood loss. Could he have anemia of chronic disease. Consider outpatient workup. - Lab Results Lab results reviewed: Yes Fish Bones: 04/11/21 20:12 04/11/21 20:12 - Diagnostic Imaging Results Diagnostic Imaging Results: positive: Final report reviewed (see HPI) - EKG Results EKG Interpreted Independently: No Core Measures - Anticipated LOS I expect patient to be DC'd or transferred within 96 hours.: Yes - DVT/VTE - Prophylaxis VTE/DVT Device ordered at admit?: Yes
[2021-04-11 22:04] LABS: B. PARAPERTUSSIS- RESP PCR PAN NOT DETECTED; B. PERTUSSIS- RESP PCR PANEL NOT DETECTED; C. PNEUMONIAE- RESP PCR PANEL NOT DETECTED; CORONAVIRUS 229E-RESP PCR NOT DETECTED; CORONAVIRUS HKU1-RESP PCR NOT DETECTED; CORONAVIRUS NL63-RESP PCR NOT DETECTED; CORONAVIRUS OC43-RESP PCR NOT DETECTED; HUMAN METAPNEUMOVIRUS NOT DETECTED; INFLUENZA A- RESP PCR PANEL NOT DETECTED; INFLUENZA B - RESP PCR PANEL NOT DETECTED; M. PNEUMONIAE- RESP PCR PANEL NOT DETECTED; PARAINFLUENZA VIRUS 1 NOT DETECTED; PARAINFLUENZA VIRUS 2 NOT DETECTED; PARAINFLUENZA VIRUS 3 NOT DETECTED; PARAINFLUENZA VIRUS 4 NOT DETECTED; RHINOVIRUS/ENTEROVIRUS NOT DETECTED; RSV- RESP PCR PANEL NOT DETECTED; SARS-CoV-2 -RESP PCR PANEL NOT DETECTED
[2021-04-11] MEDS: LACTATED RINGERS 1,000 ML IV SCH (22:31)
[2021-04-11 22:37] LABS: MUDS CUTOFF CONCENTRATIONS CUTOFF CONC BELOW:
[2021-04-11 22:39] LABS: BILIRUBIN,URINE NEGATIVE (NEGATIVE); GLUCOSE, URINE (UA) NEGATIVE (NEGATIVE); KETONES,URINE (UA) TRACE mg/dL (NEGATIVE); LEUKOCYTE ESTERASE, URINE NEGATIVE (NEGATIVE); NITRITE,URINE NEGATIVE (NEGATIVE); OCCULT BLOOD,URINE NEGATIVE (NEGATIVE); PH,URINE 5.5 PH (5.0-7.5); PROTEIN,URINE 30 mg/dL (NEGATIVE); UROBILINOGEN,URINE 0.2 (NORMAL) E.U./dL (NORMAL)
[2021-04-11 22:41] LABS: CLARITY,URINE CLEAR (CLEAR)
[2021-04-11 22:52] LABS: BACTERIA,URINE None Seen /HPF (None Seen); CASTS, URINE 0-2 Hyaline Casts /LPF; RBC,URINE None Seen /HPF (0-5); SPERM,URINE PRESENT; SQUAMOUS EPITHELIAL CELL,UR RARE Squamous (<= Few); WBC,URINE 0-3 /HPF (0-3)
[2021-04-11 22:53] LABS: AMPHETAMINE SCREEN,URINE NEGATIVE (NEGATIVE); BARBITURATE SCREEN,UR NEGATIVE (NEGATIVE); BENZODIAZEPINES SCREEN, URINE NEGATIVE (NEGATIVE); COCAINE SCREEN URINE NEGATIVE (NEGATIVE); METHADONE SCREEN, URINE NEGATIVE (NEGATIVE); METHAMPHETAMINES SCREEN, URINE NEGATIVE (NEGATIVE); OPIATE SCREEN, URINE NEGATIVE (NEGATIVE); OXYCODONE SCREEN, URINE NEGATIVE (NEGATIVE); PROPOXYPHENE SCREEN, URINE NEGATIVE (NEGATIVE); THC CANNABINOID SCREEN, URINE NEGATIVE (NEGATIVE); TRICYCLIC ANTIDEPRESSANT,URINE NEGATIVE (NEGATIVE)
[2021-04-11] MEDS: SODIUM CHLORIDE FLUSH 0.9% 10 ML SYRINGE IVP SCH (23:52)
[2021-04-12 05:19] LABS: CALCIUM 8.2 mg/dL (8.5-10.3); CREATININE 1.4 mg/dL (0.6-1.2); POTASSIUM 4.1 mmol/L (3.5-5.0)
[2021-04-12] MEDS: LACTATED RINGERS 1,000 ML IV SCH (06:10)
[2021-04-12] MEDS: SODIUM CHLORIDE FLUSH 0.9% 10 ML SYRINGE IVP SCH (09:00)
[2021-04-12] MEDS ORDERED: allopurinoL 100 MG TABLET PO SCH (09:00)
[2021-04-12] MEDS ORDERED: carvediloL 12.5 MG TABLET PO SCH (09:00)
[2021-04-12 12:12] VITALS: BP 160/8
--- NOTE | 2021-04-12 12:31 | MRI Report ---
PROCEDURE: Brain W/O INDICATIONS: new seizure TECHNIQUE: Noncontrast axial T1 spin echo, axial T2 fast spin echo, sagittal and axial FLAIR, coronal T2 fast sp in echo, axial gradient echo, axial diffusion and ADC through the brain. COMPARISON: Correlation is made with head CT, 04/11/2021. FINDINGS: Image quality: Diagnostic, with note made of motion artifact. CSF Spaces: Basal cisterns are patent. No extra-axial fluid collections. Ventricles are normal in size and shape. Brain: No intracranial masses or hemorrhage. Burroughs/white matter interface is normal. Brainstem appe ars normal. Diffusion-weighted images demonstrate no acute ischemic insult. No chronic ischemic ins ults. Normal intravascular flow voids are present. Age-appropriate brain parenchymal volume loss an d chronic small vessel ischemic change can be seen. In this patient with this given history, scrutiny is given to the hippocampi. The left the campus is minimally larger than the right, as seen on series 901 image 17. No jeremiah abnormal signal can be seen . Skull and face: Calvarium has normal marrow signal. Orbits appear normal. Sinuses: Sinuses and mastoids are clear. IMPRESSION: Note is made of mild asymmetry of the hippocampal formations, with the left side slightly larger than the right. Please note that the degree of difference between the hippocampi is not profound and this finding may not be relevant to this patient's presenting history. No findings of acute or subacute infarction are seen. Age-appropriate brain parenchymal volume loss and chronic small vessel ischemic change can be seen. Reviewed by: Omega Torrez MD on 04/12/2021 11:30 AM IVAN Approved by: Omega Torrez MD on 04/12/2021 11:30 AM IVAN Station ID: [id number]
--- NOTE | 2021-04-12 13:18 | Discharge Plan ---
Discharge Plan Problem Reviewed?: Yes Disposition: Home, Self Care Condition: Stable Prescriptions: levETIRAcetam [Keppra] 500 mg PO BID #1 bottle Diet: Diabetic Activity Restrictions: Activity as Tolerated Shower Restrictions: No Driving Restrictions: Yes (No driving until cleared to resume by a doctor) Instruction Topics: Epilepsy Meds, Epilepsy Safety During Seizure, Epilepsy Living Well Health Concerns: You were in the hospital due to having a witnessed seizure. Imaging of the brain did not show a stroke or bleeding or a tumor. You are being discharged on a new medications to suppress seizures called Keppra, that should be taken twice a day, starting tonight. The prescription waselectronically sent to your [facility] pharmacy in [place]. You should be seen by a Neurologist for follow-up care. Your Primary Care Provider will refer you to a Neurologist. Please resume all your other pre-hospital medications. YOU ARE NOT ALLOWED TO DRIVE A CAR (because of having the seizure), until driving has been OKd to resume, by one of your providers. Plan of Treatment: As above. Please see your Primary Care provider in the next 5-7 days. Care Goals: Improvement in symptoms and stabilization are the goals. Assessment: The patient was given these instructions as a reminder. Additional Instructions or Follow Up instructions: If you have new or worsening symptoms, call your PCP or Neurologist or come to the ER. No Smoking: If you smoke, Please STOP! Call for help. Follow-up with: Kali Borges MD [Primary Care Provider] -
--- NOTE | 2021-04-12 14:34 | DISCHARGE SUMMARY ---
Discharge Summary Admit Date: 04/11/21 Discharge Date: 04/12/21 Discharging Provider: Dr Sheyla Bass Primary Care Provider: Dr Kali Borges Condition at Discharge: Stable Discharge Disposition: 01 Home, Self Care - [facility] History of Present Illness: From the admission H&P of Dr. Smiley Uribe: This is a 70-year-old white male who lives on his own in spite of cognitive deficits. He still lives in his own home, drives, pays his own bills but is looked in on by his sister on a regular basis. He has several other [place] He used to live with his father but his father 4 years ago of colon cancer. He does not have a history of seizure disorder. He states there is been no change in his status. No change in appetite, activities. He is only been taking Metformin as a new medicine recently. Appetite has been the same and p.o. intake is been about the same. He denies fever, chills, sore throat. No new vitamins. Does not have any recreational substance abuse. Does not abuse alcohol. He was at the [employer] today buying some things when he suddenly fell on the ground while standing in line to pay. Had a witnessed grand mal seizure. EMS was called. He was put in a c-collar, backboard, and brought to the emergency room. He is postictal, still lethargic and slightly confused. He did strike his head on a concrete floor. EMS states he was combative on the scene, he was given 5 mg of Versed and a 30 Portuguese ET tube was placed in the right nares for snoring respiration. He was in Bilateral soft restraints. His initial temperature was 36.6. Heart rate 113. Blood pressure 94/68. Respirations 22 and he was 99% on a nonrebreather mask. For the 2 hours has been in the ER, he is gradually regaining consciousness. Initial lab work shows him to have a slightly elevated creatinine of 1.6. Baseline can be down as low as 1.0 form. He is a diabetic and random glucose is 187. Potassium is normal. He has mild chronic anemia that is stable. White cell count is normal. TSH is elevated at 8.93. Urinalysis has been ordered but not obtained. Initial toxicology screen for salicylates, acetaminophen, and ethyl alcohol are all negative. Head CT shows no acute intracranial abno rmality, except chronic microvascular disease. C-spine CT had no acute osseous abnormality and C-spine collar was removed. He is now alert, oriented, cooperative and neuro exam is non-focal. - HOSPITAL COURSE Hospital Course: (1) Seizure He was loaded with Keppra then started on Keppra 500 mg po bid. He did not have any severe electrolyte abnormality. He had a brain MRI that showed age- appropriate parenchymal loss, chronic small vessel ischemic changes and asymmetry of the hippocampal formations, with the left side slightly larger than the right (not profound). Perhaps this is the cause of his cognitive dental mental delay and a structural cause for new onset of seizures. He was discharged home on new Keppra, advised not to drive until cleared to resume driving and advised to have referral to outpatient Neurology. (2) Diabetes mellitus type 2, diet-controlled New med of Metformin recently started. Metformin can cause diarrhea and lactic acidosis but he denied any problems. He was on a carb-controlled diet with ss Insulin coverage while here. (3) BPH associated with nocturia This was a problem in the past. Patient is not on Flomax. (4) Essential hypertension Blood pressure was low when he came into the emergency room (he was 94/68). As he became more awake and alert, blood pressure was 136/71. His home Carvedilol dose of 25 twice daily was to be resumed upon return home. (5) Acute worsening of stage 3 chronic kidney disease He had a slightly increased creatinine of 1.6. He received iv fluids while here and the repeat creat was 1.4 at discharge. (6) Chronic anemia Hgb was 11.3. In the past he had a GI bleed. No complaints on ROS of any current blood loss. He could have anemia of chronic disease. Consider outpatient workup. (7) Cognitive developmental delay He carries this diagnosis, but his sister at bedside reported that he has never had official Neurology diagnosis established, even when young. He (and his sister) were advised to have him referred to outpatient Neurology for this and seizure work-up. - ALLERGIES Allergies/Adverse Reactions: Allergies Allergy/AdvReac Type Severity Reaction Status Date / Time No Known Drug Allergies Allergy Verified 01/31/19 21:48 - MEDICATIONS Home Medications: Ambulatory Orders Medication Instructions Recorded Confirmed Aspirin [Aspir-Low] 81 mg ORAL DAILY 10/19/15 01/15/19 Simvastatin 10 mg PO QPM 10/19/15 01/15/19 allopurinoL [Allopurinol] 100 mg PO DAILY 01/02/19 01/15/19 Lactobacillus Rhamnosus GG 1 cap PO DAILY 01/15/19 01/15/19 [Culturelle] carvediloL [Carvedilol] 25 mg PO BID 01/15/19 01/15/19 Magnesium Oxide [Mag Ox] 400 mg PO DAILY #10 tablet 02/01/19 cephALEXin [Keflex] 500 mg PO TID #21 capsule 02/01/19 dexAMETHasone [Decadron] 4 mg PO DAILY #5 tablet 02/01/19 levETIRAcetam [Keppra] 500 mg PO BID #1 bottle 04/12/21 - PHYSICAL EXAM AT DISCHARGE General Appearance: positive: No acute distress, Alert, Other (Male pattern baldness) Eyes Bilateral: positive: Normal inspection ENT: positive: ENT inspection nml, No signs of dehydration Neck: positive: Nml inspection, Thyroid nml, No JVD Respiratory: positive: No respiratory distress, Breath sounds nml Cardiovascular: positive: Regular rate & rhythm, No murmur Abdomen: positive: Non-tender, Nml bowel sounds (Obese with a pannus) Skin: positive: Warm, Dry Extremities: positive: Non-tender, No pedal edema Neurologic/Psychiatric: positive: Oriented x3 (Nonfocal grossly) - LABS Result Diagrams: 04/11/21 20:12 04/12/21 04:48 - FOLLOW UP Follow Up: See PCP [facility] for referral to Neurology. - TIME SPENT Time Spent in Discharge (Minutes): 45
[2021-04-12] MEDS ORDERED: levETIRAcetam 500 MG/5 ML UDC PO SCH (21:00)
== END 2021-04-12 15:00 | disposition home or self-care (01) ==
LOC: EDUNIT# → ED 19:51 → MS2 21:19
PROVIDERS: ADMIT Specialist; ATTEND Internal Medicine
DX: R56.9 Unspecified convulsions (principal); N40.1 Benign prostatic hyperplasia with lower urinary tract symptoms; R35.1 Nocturia; E11.22 Type 2 diabetes mellitus with diabetic chronic kidney disease; I12.9 Hypertensive chronic kidney disease with stage 1 through stage 4 chronic kidney disease, or unspecified chronic kidney disease; N18.30 Chronic kidney disease, stage 3 unspecified; D64.9 Anemia, unspecified; R62.59 Other lack of expected normal physiological development in childhood; Z20.822 Contact with and (suspected) exposure to COVID-19; S09.90XA Unspecified injury of head, initial encounter; W18.30XA Fall on same level, unspecified, initial encounter; Y93.89 Activity, other specified; Y92.512 Supermarket, store or market as the place of occurrence of the external cause; Z78.1 Physical restraint status
CPT/HCPCS: 36415; 70450; 70551; 72125; 80048; 80053; 80306; 80307; 81001; 83690; 84439; 84443; 85025; 87631; 93005; 96365; 99283; 99285; A9270; G0378; G0480; J7120; 0202U; 80320; 80329; 81003; 87086

== ENCOUNTER 2021-04-19 08:00 | Outpatient (CLI) | payer MEDICARE, BC ==
[2021-04-19 18:15] LABS: BASOPHILS % (AUTO) 0.6 %; EOSINOPHILS # (AUTO) 0.9 10^3/uL (0.0-0.7); EOSINOPHILS % (AUTO) 13.4 %; HCT - HEMATOCRIT 36.8 % (42.0-52.0); HGB - HEMOGLOBIN 12.1 g/dL (14.0-18.0); LYMPHOCYTES # (AUTO) 0.8 10^3/uL (1.5-3.5); LYMPHOCYTES % (AUTO) 11.5 %; MEAN CORPUSCULAR HEMOGLOBIN 33.9 pg (27.0-31.0); MEAN CORPUSCULAR HGB CONC 32.9 g/dL (32.0-36.0); MEAN CORPUSCULAR VOLUME 103.1 fL (80.0-94.0); MONOCYTES # (AUTO) 0.5 10^3/uL (0.0-1.0); MONOCYTES % (AUTO) 7.4 %; NEUTROPHILS # (AUTO) 4.6 10^3/uL (1.5-6.6); NEUTROPHILS % (AUTO) 66.8 %; PLT - PLATELET COUNT 205 10^3/uL (130-450); RED BLOOD COUNT 3.57 10^6/uL (4.70-6.10); RED CELL DISTRIBUTION WIDTH 13.4 % (12.0-15.0); WHITE BLOOD COUNT 6.9 x10^3/uL (4.8-10.8)
[2021-04-19 18:50] LABS: CALCIUM 9.3 mg/dL (8.5-10.3); CREATININE 1.4 mg/dL (0.6-1.2)
[2021-04-19 19:30] LABS: ALT ALANINE AMINOTRANSFERASE 25 IU/L (10-60); CHOL/HDL RATIO 2.7 (<5.0); CHOLESTEROL 117 mg/dL; HDL CHOLESTEROL 43 mg/dL; LDL CHOLESTEROL,CALCULATED 51 mg/dL; LDL/HDL RATIO 1.2 (<3.6); TRIGLYCERIDES 114 mg/dL; VLDL CHOLESTEROL 23 mg/dL
[2021-04-19 20:46] LABS: ESTIMATED AVERAGE GLUCOSE 137 mg/dL (70-100); HEMOGLOBIN A1c% 6.4 % (4.27-6.07)
== END 2021-04-19 23:59 | disposition home or self-care (01) ==
LOC: LAB.WCP 08:00
PROVIDERS: ATTEND Family Medicine
DX: E78.5 Hyperlipidemia, unspecified (principal); E11.29 Type 2 diabetes mellitus with other diabetic kidney complication; G40.909 Epilepsy, unspecified, not intractable, without status epilepticus
CPT/HCPCS: 36415; 80048; 80061; 80177; 83036; 83721; 84460; 85025

== ENCOUNTER 2021-04-28 13:09 | Outpatient (CLI) | payer MEDICARE, BC | END 2021-04-28 13:10 | disposition home or self-care (01) | LOC: NS 13:09 | PROVIDERS: ATTEND Internal Medicine | DX: Z71.3 Dietary counseling and surveillance (principal); E11.29 Type 2 diabetes mellitus with other diabetic kidney complication | CPT/HCPCS: 97803 ==

== ENCOUNTER 2021-05-31 14:52 | Outpatient (CLI) | payer MEDICARE, BC ==
[2021-05-31 18:02] LABS: BASOPHILS % (AUTO) 0.4 %; EOSINOPHILS # (AUTO) 0.6 10^3/uL (0.0-0.7); EOSINOPHILS % (AUTO) 10.7 %; HCT - HEMATOCRIT 34.7 % (42.0-52.0); HGB - HEMOGLOBIN 11.8 g/dL (14.0-18.0); LYMPHOCYTES # (AUTO) 0.7 10^3/uL (1.5-3.5); LYMPHOCYTES % (AUTO) 13.5 %; MEAN CORPUSCULAR HEMOGLOBIN 33.2 pg (27.0-31.0); MEAN CORPUSCULAR VOLUME 97.7 fL (80.0-94.0); MONOCYTES # (AUTO) 0.6 10^3/uL (0.0-1.0); NEUTROPHILS # (AUTO) 3.4 10^3/uL (1.5-6.6); NEUTROPHILS % (AUTO) 64.2 %; PLT - PLATELET COUNT 172 10^3/uL (130-450); RED BLOOD COUNT 3.55 10^6/uL (4.70-6.10); RED CELL DISTRIBUTION WIDTH 12.8 % (12.0-15.0); WHITE BLOOD COUNT 5.4 x10^3/uL (4.8-10.8)
[2021-05-31 18:09] LABS: ALBUMIN 4.1 g/dL (3.2-5.5); ALBUMIN/GLOBULIN RATIO 1.4 (1.0-2.2); BILIRUBIN,TOTAL 0.8 mg/dL (0.2-1.0); CALCIUM 9.3 mg/dL (8.5-10.3); CREATININE 1.2 mg/dL (0.6-1.2); POTASSIUM 4.6 mmol/L (3.5-5.0)
== END 2021-05-31 23:59 | disposition home or self-care (01) ==
LOC: LAB.WCP 14:52
PROVIDERS: ATTEND Internal Medicine
DX: G40.909 Epilepsy, unspecified, not intractable, without status epilepticus (principal)
CPT/HCPCS: 36415; 80053; 80177; 85025

== ENCOUNTER 2021-07-25 11:23 | Outpatient (CLI) | payer MEDICARE, BC ==
[2021-07-25 18:35] LABS: % IRON SATURATION 18 % (20-50); ALBUMIN 3.9 g/dL (3.2-5.5); ALBUMIN/GLOBULIN RATIO 1.6 (1.0-2.2); ALKALINE PHOSPHATASE 68 IU/L (42-121); ALT ALANINE AMINOTRANSFERASE 16 IU/L (10-60); AST ASPARTATE AMINOTRANSFERASE 14 IU/L (10-42); BILIRUBIN,TOTAL 0.6 mg/dL (0.2-1.0); BUN - BLOOD UREA NITROGEN 32 mg/dL (6-20); CALCIUM 8.5 mg/dL (8.5-10.3); CARBON DIOXIDE - CO2 26 mmol/L (21-32); CHLORIDE 101 mmol/L (101-111); CHOL/HDL RATIO 2.7 (<5.0); CHOLESTEROL 118 mg/dL; CREATININE 1.2 mg/dL (0.6-1.2); GFR - MDRD 60 (>89); GLUCOSE 129 mg/dL (70-100); HDL CHOLESTEROL 43 mg/dL; IRON 79 ug/dL (45-182); LDL CHOLESTEROL,CALCULATED 64 mg/dL; LDL/HDL RATIO 1.5 (<3.6); POTASSIUM 5.2 mmol/L (3.5-5.0); SODIUM 135 mmol/L (135-145); TOTAL IRON BINDING CAPACITY 434 ug/dL (250-450); TOTAL PROTEIN 6.4 g/dL (6.7-8.2); TRANSFERRIN 310 mg/dL (180-329); TRIGLYCERIDES 54 mg/dL; URIC ACID 4.8 mg/dL (2.6-7.2); VLDL CHOLESTEROL 11 mg/dL
[2021-07-25 18:44] LABS: BASOPHILS % (AUTO) 0.6 %; EOSINOPHILS # (AUTO) 0.4 10^3/uL (0.0-0.7); EOSINOPHILS % (AUTO) 8.3 %; HCT - HEMATOCRIT 32.8 % (42.0-52.0); HGB - HEMOGLOBIN 11.1 g/dL (14.0-18.0); LYMPHOCYTES # (AUTO) 0.7 10^3/uL (1.5-3.5); MEAN CORPUSCULAR HEMOGLOBIN 33.5 pg (27.0-31.0); MEAN CORPUSCULAR HGB CONC 33.8 g/dL (32.0-36.0); MEAN CORPUSCULAR VOLUME 99.1 fL (80.0-94.0); MEAN PLATELET VOLUME 11.1 fL (7.4-11.4); MONOCYTES # (AUTO) 0.5 10^3/uL (0.0-1.0); MONOCYTES % (AUTO) 9.3 %; NEUTROPHILS # (AUTO) 3.5 10^3/uL (1.5-6.6); NEUTROPHILS % (AUTO) 68.6 %; PLT - PLATELET COUNT 133 10^3/uL (130-450); RED BLOOD COUNT 3.31 10^6/uL (4.70-6.10); WHITE BLOOD COUNT 5.2 x10^3/uL (4.8-10.8)
[2021-07-25 18:55] LABS: FERRITIN 31.3 ng/mL (23.9-336.2)
[2021-07-25 19:55] LABS: ESTIMATED AVERAGE GLUCOSE 126 mg/dL (70-100)
== END 2021-07-25 23:59 | disposition home or self-care (01) ==
LOC: LAB.WCP 11:23
PROVIDERS: ATTEND Internal Medicine
DX: E11.29 Type 2 diabetes mellitus with other diabetic kidney complication (principal); E53.8 Deficiency of other specified B group vitamins; Z87.19 Personal history of other diseases of the digestive system; M10.39 Gout due to renal impairment, multiple sites
CPT/HCPCS: 36415; 80053; 80061; 82607; 82728; 83036; 83540; 83721; 84466; 84550; 85025

== ENCOUNTER 2021-08-11 12:56 | Outpatient (CLI) | payer MEDICARE, BC | END 2021-08-11 12:57 | disposition home or self-care (01) | LOC: NS 12:56 | PROVIDERS: ATTEND Internal Medicine | DX: E11.29 Type 2 diabetes mellitus with other diabetic kidney complication (principal); Z71.3 Dietary counseling and surveillance; Z68.33 Body mass index [BMI] 33.0-33.9, adult | CPT/HCPCS: 97803 ==

== ENCOUNTER 2021-11-03 09:36 | Outpatient (CLI) | payer MEDICARE, BC ==
[2021-11-03 12:58] LABS: ALBUMIN 4.2 g/dL (3.2-5.5); ALBUMIN/GLOBULIN RATIO 1.6 (1.0-2.2); ALKALINE PHOSPHATASE 72 IU/L (42-121); ALT ALANINE AMINOTRANSFERASE 15 IU/L (10-60); AST ASPARTATE AMINOTRANSFERASE 13 IU/L (10-42); BILIRUBIN,TOTAL 0.8 mg/dL (0.2-1.0); BUN - BLOOD UREA NITROGEN 38 mg/dL (6-20); CALCIUM 9.1 mg/dL (8.5-10.3); CARBON DIOXIDE - CO2 27 mmol/L (21-32); CHLORIDE 102 mmol/L (101-111); CHOL/HDL RATIO 2.5 (<5.0); CHOLESTEROL 129 mg/dL; CREATININE 1.3 mg/dL (0.6-1.2); GFR - MDRD 54 (>89); GLUCOSE 137 mg/dL (70-100); HDL CHOLESTEROL 51 mg/dL; LDL CHOLESTEROL,CALCULATED 61 mg/dL; LDL/HDL RATIO 1.2 (<3.6); POTASSIUM 4.9 mmol/L (3.5-5.0); SODIUM 138 mmol/L (135-145); TOTAL PROTEIN 6.8 g/dL (6.7-8.2); TRIGLYCERIDES 83 mg/dL; VLDL CHOLESTEROL 17 mg/dL
[2021-11-03 13:00] LABS: CREATININE,URINE 128.2 mg/dL; MICROALBUM/CREATININE RATIO,UR 20.3 ug/mg (<30.0); MICROALBUMIN,URINE 2.6 mg/dL (0-300.0)
[2021-11-03 13:06] LABS: ESTIMATED AVERAGE GLUCOSE 128 mg/dL (70-100); HEMOGLOBIN A1c% 6.1 % (4.27-6.07)
[2021-11-03 13:17] LABS: BASOPHILS % (AUTO) 0.4 %; EOSINOPHILS # (AUTO) 0.4 10^3/uL (0.0-0.7); EOSINOPHILS % (AUTO) 8.3 %; HCT - HEMATOCRIT 34.9 % (42.0-52.0); HGB - HEMOGLOBIN 11.7 g/dL (14.0-18.0); LYMPHOCYTES # (AUTO) 0.7 10^3/uL (1.5-3.5); MEAN CORPUSCULAR HEMOGLOBIN 32.7 pg (27.0-31.0); MEAN CORPUSCULAR HGB CONC 33.5 g/dL (32.0-36.0); MEAN CORPUSCULAR VOLUME 97.5 fL (80.0-94.0); MONOCYTES # (AUTO) 0.5 10^3/uL (0.0-1.0); MONOCYTES % (AUTO) 9.3 %; NEUTROPHILS # (AUTO) 3.6 10^3/uL (1.5-6.6); NEUTROPHILS % (AUTO) 67.6 %; PLT - PLATELET COUNT 141 10^3/uL (130-450); RED BLOOD COUNT 3.58 10^6/uL (4.70-6.10); RED CELL DISTRIBUTION WIDTH 12.2 % (12.0-15.0); WHITE BLOOD COUNT 5.3 x10^3/uL (4.8-10.8)
== END 2021-11-03 09:37 | disposition home or self-care (01) ==
LOC: LAB.N 09:36
PROVIDERS: ATTEND Internal Medicine
DX: I10 Essential (primary) hypertension (principal); E11.29 Type 2 diabetes mellitus with other diabetic kidney complication; E53.8 Deficiency of other specified B group vitamins; N40.1 Benign prostatic hyperplasia with lower urinary tract symptoms
CPT/HCPCS: 36415; 80053; 80061; 82043; 82570; 82607; 83036; 83721; 84153; 85025

== ENCOUNTER 2021-12-12 12:52 | Outpatient (CLI) | payer MEDICARE, BC | END 2021-12-12 12:53 | disposition home or self-care (01) | LOC: NS 12:52 | PROVIDERS: ATTEND Internal Medicine | DX: Z71.3 Dietary counseling and surveillance (principal); E11.29 Type 2 diabetes mellitus with other diabetic kidney complication | CPT/HCPCS: 97803 ==

== ENCOUNTER 2021-12-16 09:31 | Day surgery (SDC) | payer MEDICARE, BC ==
--- NOTE | 2021-12-16 09:40 | ANESTHESIA ---
Pre-Anesthesia VS, & Labs - Diagnosis Hx Barretts esophagus - Procedure EGD w biopsies Height: 5 ft 7 in - NPO >8 hours - Lab Results Lab results reviewed: Yes Home Medications and Allergies Home Medications: Ambulatory Orders Doxazosin Mesylate [Cardura Xl] 8 mg PO DAILY 12/15/21 Losartan Potassium [Cozaar] 100 mg PO DAILY 12/15/21 Omeprazole Magnesium 20 mg PO DAILY 12/15/21 Rosuvastatin Calcium [Crestor] 10 mg PO DAILY 12/15/21 metFORMIN [Glucophage] 850 mg PO DAILY 12/15/21 allopurinoL [Allopurinol] 100 mg PO DAILY 01/02/19 carvediloL [Carvedilol] 25 mg PO BID 01/15/19 Doxazosin Mesylate [Cardura Xl] 8 mg PO DAILY 12/15/21 Losartan Potassium [Cozaar] 100 mg PO DAILY 12/15/21 Omeprazole Magnesium 20 mg PO DAILY 12/15/21 Rosuvastatin Calcium [Crestor] 10 mg PO DAILY 12/15/21 metFORMIN [Glucophage] 850 mg PO DAILY 12/15/21 Allergies/Adverse Reactions: Allergies Allergy/AdvReac Type Severity Reaction Status Date / Time No Known Drug Allergies Allergy Verified 01/31/19 21:48 Anes History & Medical History - Anesthetic History Anesthesia Complications: reports: No previous complications Family history of Anesthesia Complications: Denies Family history of Malignant Hyperthermia: Denies - Medical History Cardiovascular: reports: Hypertension, High cholesterol Pulmonary: reports: None, COPD Gastrointestinal: reports: GI bleed, Colon polyps Urinary: reports: Benign prostate hypertrophy, Renal insuffiency, Nocturia, Other Neuro: reports: Other (cognitive deficit since childhood) Musculoskeletal: reports: Osteoarthritis, Gout Endocrine/Autoimmune: reports: Type 2 diabetes Blood Disorders: reports: None Skin: reports: None Smoking Status: Never smoker - Surgical History General: reports: Colonoscopy, EGD Eyes Ears Nose Throat (EENT): reports: Other Exam General: Alert, Oriented x3, Cooperative Dental: WNL, Loose/Frag Mouth Openin Fingerbreadth Neck Mobility: Normal Mallampati classification: II Thyromental Distance: 4-6 cm Respiratory: Lungs clear, Normal breath sounds, No respiratory distress Cardiovascular: Regular rate Neurological: Normal speech Mental/Cognitive Status: Alert/Oriented X3, Normal for patient Cognitive Status: Within normal limits Plan Anesthesia Type: Total IV Consent for Procedure(s) Verified and Reviewed: Yes Code Status: Attempt Resuscitation ASA classification: 3-Severe systemic disease Is this case an emergency?: No
[2021-12-16] MEDS ORDERED: LIDOCAINE-MPF 2% 5 ML VIAL ONE (09:42)
[2021-12-16] MEDS ORDERED: PROPOFOL 200 MG/20 ML VIAL IVP ONE (09:42)
[2021-12-16] MEDS ORDERED: MIDAZOLAM 2 MG/2 ML VIAL ONE (09:44)
[2021-12-16] MEDS ORDERED: LACTATED RINGERS 1,000 ML IV ONE ×2 (09:53→10:35)
[2021-12-16 10:49] VITALS: BP 134/70
--- NOTE | 2021-12-16 11:14 | ANESTHESIA POST OP EVALUATION ---
Anesthesia Post Eval - Post Anesthesia Eval Vitals: Last Vital Signs Temp 36.6 C 12/16/21 10:35 Pulse 80 12/16/21 10:48 Resp 13 12/16/21 10:48 BP 134/70 H 12/16/21 10:48 Pulse Ox 99 12/16/21 10:48 CV Function Including HR & BP: Stable Pain Control: Satisfactory Nausea & Vomiting: Negative Mental Status: Baseline Respiratory Status: Airway Patent Hydration Status: Satisfactory Anesthesia Complications: None
== END 2021-12-16 09:32 | disposition home or self-care (01) ==
LOC: SDS 09:31
PROVIDERS: ATTEND Surgery
PROC: 0DB78ZX Excision of Stomach, Pylorus, Via Natural or Artificial Opening Endoscopic, Diagnostic (ICD-10-PCS; 2021-12-16)
PROC: 0DB58ZX Excision of Esophagus, Via Natural or Artificial Opening Endoscopic, Diagnostic (ICD-10-PCS; 2021-12-16)
PROC: 0DB98ZX Excision of Duodenum, Via Natural or Artificial Opening Endoscopic, Diagnostic (ICD-10-PCS; principal; 2021-12-16 10:30)
DX: K22.70 Barrett's esophagus without dysplasia (principal); Z80.0 Family history of malignant neoplasm of digestive organs; Z87.11 Personal history of peptic ulcer disease
CPT/HCPCS: 43239; J7120

== ENCOUNTER 2022-02-20 14:14 | Outpatient (CLI) | payer MEDICARE, BC | END 2022-02-20 14:15 | disposition E | LOC: EMS 14:14 ==